=== PATIENT | female | born 1935 | race Caucasian/White ===

== ENCOUNTER → 2018-05-09 | Outpatient (CLI) | payer OTHER, MEDICARE ==
[2014-08-21 14:21] VITALS: BP 132/70
[~2018-05-09] MED LIST: ASCO10002 PO; ASPI-482 PO; CELE200C PO; CHOL500016 PO; DABI150C PO; ENOX40DI SQ; FERR325T14 PO; FERR325T58 PO; FURO20TA3 PO; FURO40TA4 PO; GABA300C18 PO; GLUC1CAP41 PO; HYDR-3164 PO; IOHEXOL 240 MG/ML 50ML VIAL. PO ONE; IOHEXOL 300 MG/ML 100ML VIAL. IV ONE; LACT1CAP2 PO; LEVO88TA4 PO; LOSA1TAB22 PO; MAGN400C PO; METO-247 PO; METO100T7 PO; MULT-208 PO; MULT-245 PO; MULT-658 PO; NABU750T PO; NYST100054 PO; OMEG1CAP30 PO; OMEP40CA5 PO; OXYB5TAB7 PO; OXYC1TAB22 PO; POTA10TA12 PO; PRAM0.25 PO; TRAM50TA PO; VITA1TAB19 PO; VITA80003 PO; ZOLP5TAB PO; calcium PO
--- NOTE | 2018-05-09 11:41 | KCIC ---
PQRS Compliance statement: One or more of the following individualized dose reduction techniques were utilized for this examination: 1. Automated exposure control. 2. Adjustment of the mA and/or kV according to patient size. 3. Use of iterative reconstruction technique. Indication:Lower abdominal/pelvis pain bilaterally, diverticulosis, diarrhea TECHNIQUE: CT abdomen and pelvis with IV contrast with multiplanar reformats. COMPARISON: 11/09/2014 FINDINGS: Heart is normal in size. No pericardial or pleural effusion. Minimal interval increase in the size of left lung base nodule measuring 1.7 cm, previously 1.5 cm. Liver, spleen, pancreas, adrenals within normal limits. Simple cyst is seen in the left kidney measuring 4.7 cm. No nephrolithiasis or hydronephrosis. No free pelvic fluid or ascites. Sigmoid diverticulosis. No bowel obstruction. Status post partial proximal colectomy. Uterus is present. Urinary bladder shows no radiopaque stones. No pneumoperitoneum. Mild diffuse atherosclerotic disease of the abdominal aorta. No suspicious bony lesion. Multilevel advanced degenerative disc disease in the lumbar spine. IMPRESSION: 1. Slight interval increase in size of left lower lobe nodular opacity when compared to previous exam from 11/09/2014. Extremity slow growth suggests benign etiology. Follow-up CT chest in 6-12 months recommended. 2. Mild sigmoid diverticulosis without diverticulitis. Electronically signed by: Joe Ansari DO (05/09/2018 11:38 AM) [id number]
== END | disposition home or self-care (01) ==
LOC: KCIC CT 09:36
PROVIDERS: ATTEND Nurse Practitioner Family
DX: K57.30 Diverticulosis of large intestine without perforation or abscess without bleeding (principal); I70.0 Atherosclerosis of aorta; M51.36 Other intervertebral disc degeneration, lumbar region; N28.1 Cyst of kidney, acquired; R91.1 Solitary pulmonary nodule; I10 Essential (primary) hypertension; Z79.01 Long term (current) use of anticoagulants; Z68.43 Body mass index [BMI] 50.0-59.9, adult; Z87.19 Personal history of other diseases of the digestive system; Z90.49 Acquired absence of other specified parts of digestive tract
CPT/HCPCS: 74177; 82565; Q9966; Q9967

== ENCOUNTER 2019-08-07 12:22 | Emergency (ER) | payer OTHER, MEDICARE ==
[~2019-08-07] VITALS: Ht 157.5 cm; Wt 120.0 kg
[~2019-08-07 12:22] MED LIST changes: -IOHEXOL 240 MG/ML 50ML VIAL. PO ONE; -IOHEXOL 300 MG/ML 100ML VIAL. IV ONE; +OMEP40CA45 PO; -OMEP40CA5 PO; +OXYB5TAB10 PO; -OXYB5TAB7 PO; -POTA10TA12 PO; +POTASSIUM CHLO10 ME1 PO
--- NOTE | 2019-08-07 13:09 | PHYS DOC ---
Past Medical History Past Medical History: A-Fib, Hypertension, Other Past Surgical History: Other Additional Past Surgical Histo: PARTIAL THYROIDECTOMY, HERNIA REPAIR, PARTIAL C OLON RESECTION Smoking Status: Never Smoker Alcohol Use: None Drug Use: None General Adult EDM: Chief Complaint: SHORTNESS OF BREATH HPI: HPI: Patient is a 84 year old female with history of A. fib, hypertension, who presents to the ED today complaining of shortness of breath that is chronic in nature but got worse in the last couple days. Patient denies any coughing, fever. Denies any chest pain. PCP Dr. Braden Hughes [employer] Dr. Castellon Review of Systems: Review of Systems: Constitutional: Denies fever or chills. [] Eyes: Denies change in visual acuity. [] HENT: Denies nasal congestion or sore throat. [] Respiratory: Reports shortness of breath. Denies cough Cardiovascular: Denies chest pain or edema. [] GI: Denies abdominal pain, nausea, vomiting, bloody stools or diarrhea. [] : Denies dysuria. [] Musculoskeletal: Denies back pain or joint pain. [] Integument: Denies rash. [] Neurologic: Denies headache, focal weakness or sensory changes. [] Psychiatric: Denies depression or anxiety. [] Heart Score: Risk Factors: Risk Factors: DM, Current or recent (<one month) smoker, HTN, HLP, family history of CAD, obesity. Risk Scores: Score 0 - 3: 2.5% MACE over next 6 weeks - Discharge Home Score 4 - 6: 20.3% MACE over next 6 weeks - Admit for Clinical Observation Score 7 - 10: 72.7% MACE over next 6 weeks - Early Invasive Strategies Allergies: Allergies: Allergies Coded Allergies Type Severity Reaction Last Updated Verified No Known Drug Allergies 06/30/14 No Physical Exam: PE: Constitutional: Obese patient, no acute distress, non-toxic appearance. [] HENT: Normocephalic, atraumatic, bilateral external ears normal, oropharynx moist, no oral exudates, nose normal. [] Eyes: PERRLA, EOMI, conjunctiva normal, no discharge. [] Neck: Normal range of motion, no tenderness, supple, no stridor. [] Cardiovascular:Heart rate regular rhythm, no murmur [] Lungs & Thorax: Bilateral breath sounds clear to auscultation [] Abdomen: Bowel sounds normal, soft, no tenderness, no masses, no pulsatile masses. [] Skin: Warm, dry, no erythema, no rash. [] Back: No tenderness, no CVA tenderness. [] Extremities: No tenderness, no cyanosis, no clubbing, ROM intact, no edema. [] Neurologic: Alert and oriented X 3, normal motor function, normal sensory function, no focal deficits noted. [] Psychologic: Affect normal, judgement normal, mood normal. [] EKG: EKG: [] Radiology/Procedures: Radiology/Procedures: []PROCEDURE: PORTABLE CHEST 1V EXAM: PORTABLE CHEST 1V 08/07/2019 1:05 PM CLINICAL INDICATION:Shortness of breath COMPARISON:None TECHNIQUE:AP upright view of the chest FINDINGS:Mild cardiomegaly is unchanged. There is calcified atherosclerosis in the thoracic aorta. Lungs are adequately expanded. No pulmonary edema, consolidation, pleural effusion or pneumothorax. Mild thoracic scoliosis. IMPRESSION: Unchanged mild cardiomegaly. No acute abnormality. Electronically signed by: Macy Kirkland MD (08/07/2019 1:50 PM) [id number] DICTATED and SIGNED BY: MACY KIRKLAND MD DATE: 08/07/19 1356 Course & Med Decision Making: Course & Med Decision Making Pertinent Labs and Imaging studies reviewed. (See chart for details) This is a 84-year-old female patient with history of A. fib presenting to the ED today with shortness of breath that is chronic but has gotten worse in the last couple days. Chest x-ray was negative for any acute findings, EKG is negative, most of her labs are negative for any acute findings, BNP noted at 992. Patient reports being on several water pills including furosemide and HCTZ which she did not take this morning. Blood pressure was 184/71 has not take any of her medications this morning. Given furosemide and metoprolol in the ED. She states she is feeling better. She was discharged to home. Follow-up with PCP and drop count associate tomorrow. RX for cephalaxin sent to her pharmacy for UTI Josue Disclaimer: Josue Disclaimer: This electronic medical record was generated, in whole or in part, using a voice recognition dictation system. Departure Departure Impression: Primary Impression: Shortness of breath Additional Impression: CHF (congestive heart failure) Qualified Codes: I50.9 - Heart failure, unspecified Disposition: 01 HOME, SELF-CARE Condition: STABLE Referrals: MICHAEL TOUSSAINT (PCP) Follow-up in 1 to 2 weeks Patient Instructions: Shortness of Breath Additional Instructions: You were evaluated in the emergency room for shortness of breath. Please continue taking your medications and follow-up with your primary care doctor as well as drop count associate in the course of next week. Scripts Cephalexin (CEPHALEXIN) 500 Mg Tablet 1 TAB PO BID, #14 TAB Prov: DEACON GOODWIN APRN 08/07/19 DEACON GOODWIN APRN August 07, 2019 13:09
[2019-08-07 13:20] LABS: BASO # 0.1 x10^3/uL (0.0-0.2); BASO % 1 % (0-3); EOS # 0.1 x10^3/uL (0.0-0.7); EOS % 2 % (0-3); HEMATOCRIT 43.2 % (36.0-47.0); HEMOGLOBIN 14.5 g/dL (12.0-15.5); LYMPH # 0.9 x10^3/uL (1.0-4.8); LYMPH % 15 % (24-48); MEAN CORPUSCULAR HEMOGLOBIN 30 pg (25-35); MEAN CORPUSCULAR HGB CONC 34 g/dL (31-37); MEAN CORPUSCULAR VOLUME 90 fL (79-100); MONO # 0.5 x10^3/uL (0.0-1.1); MONO % 9 % (0-9); NEUT # 4.3 x10^3/uL (1.8-7.7); NEUT % 73 % (31-73); PLATELET COUNT 201 x10^3/uL (140-400); RED BLOOD COUNT 4.79 x10^6/uL (3.50-5.40); RED CELL DISTRIBUTION WIDTH 14.9 % (11.5-14.5); WHITE BLOOD COUNT 5.9 x10^3/uL (4.0-11.0)
[2019-08-07 13:30] LABS: PROTHROMBIN TIME PATIENT 15.5 SEC (11.7-14.0)
[2019-08-07 13:33] LABS: CALCIUM 9.4 mg/dL (8.5-10.1); CREATININE 0.8 mg/dL (0.6-1.0); GFR 68.5; POTASSIUM 3.7 mmol/L (3.5-5.1)
[2019-08-07 13:38] LABS: ALBUMIN 3.5 g/dL (3.4-5.0); ALBUMIN/GLOBULIN RATIO 0.9 (1.0-1.7); MAGNESIUM 2.2 mg/dL (1.8-2.4); TOTAL BILIRUBIN 0.7 mg/dL (0.2-1.0); TOTAL PROTEIN 7.3 g/dL (6.4-8.2)
[2019-08-07 13:48] LABS: CREATINE KINASE 67 U/L (26-192)
--- NOTE | 2019-08-07 13:48 | EKG ---
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
--- NOTE | 2019-08-07 13:53 | RAD ---
EXAM: PORTABLE CHEST 1V 08/07/2019 1:05 PM CLINICAL INDICATION:Shortness of breath COMPARISON:None TECHNIQUE:AP upright view of the chest FINDINGS:Mild cardiomegaly is unchanged. There is calcified atherosclerosis in the thoracic aorta. Lungs are adequately expanded. No pulmonary edema, consolidation, pleural effusion or pneumothorax. Mild thoracic scoliosis. IMPRESSION: Unchanged mild cardiomegaly. No acute abnormality. Electronically signed by: Macy Kirkland MD (08/07/2019 1:50 PM) [id number]
[2019-08-07 14:40] LABS: BILIRUBIN,URINE NEGATIVE (NEG); CLARITY,URINE CLEAR; COLOR,URINE YELLOW; NITRITE,URINE NEGATIVE (NEG); PROTEIN,URINE NEGATIVE (NEG-TRACE); UROBILINOGEN,URINE 0.2 mg/dL (0.2 mg/dL)
[2019-08-07 14:46] LABS: BACTERIA,URINE MANY /HPF (0-FEW); RBC,URINE OCC /HPF (0-2); SQUAMOUS EPITHELIAL CELL,UR FEW /LPF; WBC,URINE 20-40 /HPF (0-4)
[2019-08-07 14:49] LABS: BARBITURATES NEG (NEG); BENZODIAZEPINES NEG (NEG); CANNABINOIDS NEG (NEG); COCAINE NEG (NEG); METHADONE NEG (NEG); OPIATES NEG (NEG); PHENCYCLIDINE NEG (NEG)
[2019-08-07 14:57] LABS: AMPHETAMINE/METHAMPHETAMINE NEG (NEG)
[2019-08-07] MEDS ORDERED: FUROSEMIDE 40 MG TABLET. PO ONE (15:45)
[2019-08-07] MEDS ORDERED: METOPROLOL TART IMMED RELEASE 50 MG TABLET. PO ONE (15:45)
[2019-08-07] MEDS ORDERED: CEPH500T PO (16:00)
[2019-08-07 16:01] VITALS: BP 211/87
== END 2019-08-07 16:45 | disposition home or self-care (01) ==
LOC: ER 12:22
DX: I11.0 Hypertensive heart disease with heart failure (principal); I50.9 Heart failure, unspecified; R06.02 Shortness of breath; I48.91 Unspecified atrial fibrillation
CPT/HCPCS: 36415; 71045; 80053; 80307; 81001; 82553; 83605; 83735; 83880; 84145; 84443; 84484; 85025; 85610; 85730; 87040; 93005; 99285-25

== ENCOUNTER → 2019-09-25 | Outpatient (CLI) | payer OTHER, MEDICARE ==
[~2019-09-25] MED LIST changes: +ASCO100019 PO; -ASCO10002 PO; +CEPH500T PO
--- NOTE | 2019-09-25 15:45 | CARD ---
MR#: [id number] Date of Study: 09/25/2019 Ordering Physician: FREDY ANDERSON, Referring Physician: FREDY ANDERSON, Tech: Maryam Madden [facility] APPROV[facility] REPORT EXAM: Two-dimensional and M-mode echocardiogram with Doppler and color Doppler. Other Information Quality : Good Rhythm : Atrial Fibrillation INDICATION Exertional Dyspnea 2D DIMENSIONS RVDd3.6 (2.9-3.5cm)Left Atrium(2D)4.5 (1.6-4.0cm) IVSd1.3 (0.7-1.1cm)Aortic Root(2D)3.1 (2.0-3.7cm) LVDd5.3 (3.9-5.9cm)LVOT Diameter2.0 (1.8-2.4cm) PWd1.2 (0.7-1.1cm)LVDs3.2 (2.5-4.0cm) FS (%) 38.9 %SV93.9 ml LVEF(%)60.0 (>50%) Aortic Valve AoV Peak Javier.158.9cm/sAoV VTI34.1cm AO Peak GR.10.1mmHgLVOT Peak Javier.111.2cm/s AO Mean GR.5mmHgAVA (VMAX)2.20cm2 ARYA (VTI)2.20cm2 Tricuspid Valve TR P. [id number] [id number] TR Peak Gr.10whLyFCIK31hsEe LEFT VENTRICLE The left ventricle is normal size. There is mild concentric left ventricular hypertrophy. The left ve ntricular systolic function is normal and the ejection fraction is within normal range. The Ejection Fraction is 55-60%. There is normal LV segmental wall motion. Tissue Doppler imaging reveals moderate left ventricular diastolic dysfunction. RIGHT VENTRICLE The right ventricle is mildly dilated. The right ventricular systolic function is normal. ATRIA The left atrium is mildly dilated. The right atrium is mildly dilated. The interatrial septum is inta ct with no evidence for an atrial septal defect or patent foramen ovale as noted on 2-D or Doppler im aging. AORTIC VALVE The aortic valve is calcified but opens well. Doppler and Color Flow revealed no significant aortic r egurgitation. There is no significant aortic valvular stenosis. MITRAL VALVE The mitral valve is calcified but opens well. There is no evidence of mitral valve prolapse. There is no mitral valve stenosis. Doppler and Color-flow revealed trace mitral regurgitation. TRICUSPID VALVE The tricuspid valve is normal in structure and function. Doppler and Color Flow revealed mild tricusp id regurgitation. There is moderate pulmonary hypertension. The PA pressure was estimated at 52 mmHg. There is no tricuspid valve stenosis. PULMONIC VALVE Doppler and Color Flow revealed trace to mild pulmonic valvular regurgitation. There is no pulmonic v alvular stenosis. GREAT VESSELS The aortic root is normal in size. The ascending aorta is mildly dilated at 3.5 cm. The IVC is normal in size and collapses >50% with inspiration. PERICARDIAL EFFUSION There is no evidence of significant pericardial effusion. Critical Notification Critical Value: No <Conclusion> The left ventricular systolic function is normal and the ejection fraction is within normal range. Th e Ejection Fraction is 55-60%. There is normal LV segmental wall motion. Doppler and Color Flow revealed mild tricuspid regurgitation. There is moderate pulmonary hypertensio n. The PA pressure was estimated at 52 mmHg. The ascending aorta is mildly dilated at 3.5 cm. Signed by : Fredy Anderson, Electronically Approved : 09/25/2019 15:45:10
== END | disposition home or self-care (01) ==
LOC: ECHO 08:12
PROVIDERS: ATTEND Internal Medicine Cardiovascular Disease
DX: I08.8 Other rheumatic multiple valve diseases (principal); I27.20 Pulmonary hypertension, unspecified
CPT/HCPCS: 93306

== ENCOUNTER 2021-01-31 12:39 | Inpatient (IN) | payer MEDICARE, OTHER ==
[~2021-01-31] VITALS: Ht 165.1 cm; Wt 120.0 kg
[~2021-01-31 12:39] MED LIST changes: -NABU750T PO; +NABU750T11 PO; -OMEP40CA45 PO; +OMEP40CA7 PO
[2021-01-31] MEDS ORDERED: DEXAMETHASONE SOD PHOS 20 MG/5 ML VIAL. IV ONE (13:00)
[2021-01-31] MEDS ORDERED: ACETAMINOPHEN 500 MG TABLET PO ONE (13:00)
--- NOTE | 2021-01-31 13:11 | PHYS DOC ---
Past Medical History Past Medical History: A-Fib, Hypertension, Other Past Surgical History: Other Additional Past Surgical Histo: PARTIAL THYROIDECTOMY, HERNIA REPAIR, PARTIAL C OLON RESECTION Smoking Status: Never Smoker Alcohol Use: None Drug Use: None General Adult EDM: Chief Complaint: OTHER COMPLAINTS HPI: HPI: Patient is an 85-year-old female who presents to the emergency department today for shortness of breath, nonproductive cough, fever. Patient is Covid positive and has worsening of her symptoms over the last day. Patient is on day 10 of her quarantine. She does not wear home oxygen. She is hypoxic upon ER arrival at 88 to 89% on room air. Patient has a history of A. fib and hypertension. She denies chest pain, nausea, vomiting. Patient denies any history of CHF or COPD. She states that she has bilateral lower extremity edema but this is her baseline edema. Review of Systems: Review of Systems: Constitutional: See HPI Respiratory: See HPI Cardiovascular: See HPI GI: See HPI Heart Score: C/O Chest Pain: No Risk Factors: Risk Factors: DM, Current or recent (<one month) smoker, HTN, HLP, family history of CAD, obesity. Risk Scores: Score 0 - 3: 2.5% MACE over next 6 weeks - Discharge Home Score 4 - 6: 20.3% MACE over next 6 weeks - Admit for Clinical Observation Score 7 - 10: 72.7% MACE over next 6 weeks - Early Invasive Strategies Current Medications: Current Medications Medications (Trade) Dose Ordered Sig/Flora Start Time Stop Time Status Last Admin Dose Admin Acetaminophen (Tylenol) 1,000 mg 1X ONCE 01/31/21 13:00 01/31/21 13:01 DC Dexamethasone Sodium Phosphate (Decadron) 10 mg 1X ONCE 01/31/21 13:00 01/31/21 13:01 DC Allergies: Allergies: Allergies Coded Allergies Type Severity Reaction Last Updated Verified No Known Drug Allergies 06/30/14 No Physical Exam: PE: Constitutional: Well developed, well nourished, no acute distress, non-toxic appearance. [] HENT: Normocephalic, atraumatic, bilateral external ears normal, oropharynx moist, no oral exudates, nose normal. [] Eyes: PERRL, EOMI, conjunctiva normal, no discharge. [] Neck: Normal range of motion, no stridor Cardiovascular:Heart rate regular rhythm, no murmur [] Lungs & Thorax: Bilateral breath sounds clear to auscultation [] Abdomen: Bowel sounds normal, soft, no tenderness, no masses, no pulsatile mas ses. [] Skin: Warm, dry, no erythema, no rash. [] Back: Normal range of motion Extremities: No tenderness, no cyanosis, no clubbing, ROM intact, 2+ pitting edema noted bilaterally with darkened discoloration of bilateral lower extremities Neurologic: Alert and oriented X 3, normal motor function, normal sensory function, no focal deficits noted. [] Psychologic: Affect normal, judgement normal, mood normal. [] Current Patient Data: Labs: Laboratory Tests Test 01/31/21 13:28 White Blood Count 4.3 x10^3/uL Red Blood Count 4.84 x10^6/uL Hemoglobin 14.3 g/dL Hematocrit 42.1 % Mean Corpuscular Volume 87 fL Mean Corpuscular Hemoglobin 30 pg Mean Corpuscular Hemoglobin Concent 34 g/dL Red Cell Distribution Width 14.2 % Platelet Count 185 x10^3/uL Neutrophils (%) (Auto) 77 % Lymphocytes (%) (Auto) 11 % Monocytes (%) (Auto) 11 % Eosinophils (%) (Auto) 0 % Basophils (%) (Auto) 1 % Neutrophils # (Auto) 3.3 x10^3/uL Lymphocytes # (Auto) 0.5 x10^3/uL Monocytes # (Auto) 0.5 x10^3/uL Eosinophils # (Auto) 0.0 x10^3/uL Basophils # (Auto) 0.0 x10^3/uL Sodium Level 133 mmol/L Potassium Level 4.0 mmol/L Chloride Level 94 mmol/L Carbon Dioxide Level 29 mmol/L Anion Gap 10 Blood Urea Nitrogen 13 mg/dL Creatinine 0.8 mg/dL Estimated GFR (Cockcroft-Gault) 68.3 BUN/Creatinine Ratio 16 Glucose Level 105 mg/dL Calcium Level 8.6 mg/dL Total Bilirubin 1.0 mg/dL Aspartate Amino Transf (AST/SGOT) 93 U/L Alanine Aminotransferase (ALT/SGPT) 73 U/L Alkaline Phosphatase 86 U/L Troponin I High Sensitivity 16 ng/L QZ-Hru-Y-Type Natriuretic Peptide 1032 pg/mL Total Protein 6.3 g/dL Albumin 3.0 g/dL Albumin/Globulin Ratio 0.9 Current Medications Medications (Trade) Dose Ordered Sig/Flora Route PRN Reason Start Time Stop Time Status Last Admin Dose Admin Dexamethasone Sodium Phosphate (Decadron) 10 mg 1X ONCE IV 01/31/21 13:00 01/31/21 13:01 DC 01/31/21 14:01 Acetaminophen (Tylenol) 1,000 mg 1X ONCE PO 01/31/21 13:00 01/31/21 13:01 DC 01/31/21 13:17 Ceftriaxone Sodium (Rocephin) 1 gm 1X ONCE IVP 01/31/21 14:45 01/31/21 14:46 DC Azithromycin 250 ml @ 250 mls/hr 1X ONCE IV 01/31/21 14:45 01/31/21 15:44 Vital Signs: Vital Signs Date Time Temp Pulse Resp B/P (MAP) Pulse Ox O2 Delivery O2 Flow Rate FiO2 01/31/21 12:57 100.8 90 20 155/69 (97) 89 Room Air 100.8 EKG: EKG: EKG performed by ER staff at 1254 shows A. fib, no STEMI read by Dr. Rosado at 1257 [] Radiology/Procedures: Radiology/Procedures: PATIENT: MATILDE BERMUDEZ ACCOUNT: [id number] : 1935 LOCATION: ER AGE: 85 SEX: F EXAM STATUS: PRE ER ORD. PHYSICIAN: JAJA TUCKER APRN REASON: soa PROCEDURE: PORTABLE CHEST 1V EXAM: Chest, single view. HISTORY: Shortness of air. COMPARISON: 08/07/2019 FINDINGS: A frontal view of the chest is obtained. There is diffuse interstitial infiltrate. There are trace pleural effusions. There is cardiomegaly. There is no pneumothorax. IMPRESSION: Diffuse interstitial infiltrate with trace pleural effusions and cardiomegaly. Electronically signed by: Cee Barone MD (01/31/2021 1:15 PM) [id number] DICTATED and SIGNED BY: CEE BARONE MD DATE: 01/31/21 [id number] Course & Med Decision Making: Course & Med Decision Making Pertinent Labs and Imaging studies reviewed. (See chart for details) [] Patient presents to the emergency department for shortness of breath, fever, nonproductive cough. Patient is Covid positive. Patient is requiring oxygen at this time as she is 88 to 89% on room air. Work-up in the ER consisted of blood work, EKG, chest x-ray, patient treated with 10mg decadron for hypoxia in Covid-19 infection. Patient CBC was unremarkable. She had elevation of her BNP at 1032, mild elevation in her AST and ALT consistent with a COVID-19 infection, troponin was 16. Patient's chest x-ray showed diffuse interstitial infiltrate with trace pleural effusions. Patient is still requiring oxygen at this time. Patient will be admitted for Covid pneumonia and hypoxia. Discussed patient's findings with her and she is agreeable to care plan. I discussed patient's findings with Dr. Ann who agreed to admit the patient under his services for Covid pneumonia and hypoxia. IV antibiotics ordered for patient in ER bridge orders placed Dragon Disclaimer: Dragon Disclaimer: This electronic medical record was generated, in whole or in part, using a voice recognition dictation system. Departure Departure Impression: Primary Impression: Pneumonia due to COVID-19 virus Additional Impression: Hypoxia Disposition: ADMITTED INPATIENT Admitting Physician: SHAY Condition: STABLE Referrals: JENNIFER CM MD (PCP) JAJA TUCKER VENEER SANDER Jan 31, 2021 13:11
--- NOTE | 2021-01-31 13:18 | RAD ---
EXAM: Chest, single view. HISTORY: Shortness of air. COMPARISON: 08/07/2019 FINDINGS: A frontal view of the chest is obtained. There is diffuse interstitial infiltrate. There ar e trace pleural effusions. There is cardiomegaly. There is no pneumothorax. IMPRESSION: Diffuse interstitial infiltrate with trace pleural effusions and cardiomegaly. Electronically signed by: Cee Kelly MD (01/31/2021 1:15 PM) [id number]
[2021-01-31 13:41] LABS: BASO % 1 % (0-3); EOS % 0 % (0-3); HEMATOCRIT 42.1 % (36.0-47.0); HEMOGLOBIN 14.3 g/dL (12.0-15.5); LYMPH # 0.5 x10^3/uL (1.0-4.8); LYMPH % 11 % (24-48); MEAN CORPUSCULAR HEMOGLOBIN 30 pg (25-35); MEAN CORPUSCULAR HGB CONC 34 g/dL (31-37); MEAN CORPUSCULAR VOLUME 87 fL (79-100); MONO # 0.5 x10^3/uL (0.0-1.1); MONO % 11 % (0-9); NEUT # 3.3 x10^3/uL (1.8-7.7); NEUT % 77 % (31-73); PLATELET COUNT 185 x10^3/uL (140-400); RED BLOOD COUNT 4.84 x10^6/uL (3.50-5.40); RED CELL DISTRIBUTION WIDTH 14.2 % (11.5-14.5); WHITE BLOOD COUNT 4.3 x10^3/uL (4.0-11.0)
[2021-01-31 13:48] LABS: CALCIUM 8.6 mg/dL (8.5-10.1); CREATININE 0.8 mg/dL (0.6-1.0); GFR 68.3
[2021-01-31 13:54] LABS: ALBUMIN/GLOBULIN RATIO 0.9 (1.0-1.7); TOTAL PROTEIN 6.3 g/dL (6.4-8.2)
--- NOTE | 2021-01-31 14:15 | EKG ---
[facility] [address] [place] [address] Test Date: 2021-01-31 Test Time: 12:54:21 Pat Name: MATILDE BERMUDEZ Department: Room: Gender: F Secondary Market Manager: : 1935 Requested By: JAJA TUCKER Order Number: [id number] Reading MD: Rangel Wolf Measurements Intervals [place] Rate: 96 P: [place]: QRS: 55 QRSD: 112 T: -8 QT: 352 QTc: 446 Interpretive Statements ATRIAL FIBRILLATION T ABNORMALITY IN ANTERIOR LEADS ABNORMAL ECG Electronically Signed On 02-01-2021 14:24:18 STERILIZER OPERATOR by Rangel Wolf
[2021-01-31] MEDS ORDERED: AZITHRMYCN 500MG IVPB FOR OMNI 250 ML IV ONE (14:45)
[2021-01-31] MEDS ORDERED: cefTRIAXone IV Push 1 GM VIAL. IVP ONE (14:45)
[2021-01-31] MEDS ORDERED: oxyCODONE/APAP 5/325 1 TAB TABLET PO PRN (16:00)
[2021-01-31] MEDS ORDERED: oxyCODONE IR 5 MG TABLET PO PRN (16:00)
[2021-01-31] MEDS ORDERED: CALCIUM CARBONATE 500 MG TAB.CHEW PO PRN (16:00)
[2021-01-31] MEDS ORDERED: ACETAMINOPHEN 325 MG TABLET. PO PRN (16:00)
[2021-01-31] MEDS ORDERED: ONDANSETRON PF 4 MG/2 ML VIAL. IVP PRN (16:00)
[2021-01-31] MEDS ORDERED: ELECTROLYTE (NON-ICU) PROTOCOL. MC PRN (16:00)
--- NOTE | 2021-01-31 16:01 | PDOC1 ---
History and Physical Date of Service: DOS: DATE: 01/31/21 TIME: 16:01 Chief Complaint: Problems: (1) Pneumonia due to COVID-19 virus (2) Hypoxia Chief Complain: Shortness of breath History of Present Illness: HPI: Patient is a pretty poor historian thus HPI from emergency room below Patient is an 85-year-old female who presents to the emergency department today for shortness of breath, nonproductive cough, fever. Patient is Covid positive from what she thinks is 1 week ago and has worsening of her symptoms over the last day. Patient is on day 10 of her quarantine? She does not wear home oxygen. She was hypoxic upon ER arrival at 88 to 89% on room air. Patient has a history of A. fib and hypertension. She denies chest pain, nausea, vomiting. Patient denies any history of CHF or COPD. She states that she has bilateral lower extremity edema but this is her baseline edema. When I evaluated the patient in the emergency room she was still requiring supplemental oxygen. She had received broad-spectrum antibiotics and Decadron. Respirations were still pretty labored. Imaging consistent with ongoing Covid pneumonia. Past Medical/Surgical History: PMH/PSH: A. fib, hypertension Allergies: Allergies: Coded Allergies: No Known Drug Allergies (Unverified , 06/30/14) Family History: Family History: Reviewed with patient she reports hypertension Social History: Social History: Patient denies alcohol tobacco drug use Current Medications: Current Medications Current Medications Dexamethasone Sodium Phosphate (Decadron) 10 mg 1X ONCE IV Last administered on 01/31/21at 14:01; Start 01/31/21 at 13:00; Stop 01/31/21 at 13:01; Status DC Acetaminophen (Tylenol) 1,000 mg 1X ONCE PO Last administered on 01/31/21at 13:17; Start 01/31/21 at 13:00; Stop 01/31/21 at 13:01; Status DC Ceftriaxone Sodium (Rocephin) 1 gm 1X ONCE IVP ; Start 01/31/21 at 14:45; Stop 01/31/21 at 14:46; Status DC Azithromycin 250 ml @ 250 mls/hr 1X ONCE IV ; Start 01/31/21 at 14:45; Stop 01/31/21 at 15:44; Status DC Ceftriaxone Sodium (Rocephin) 1 gm Q24H IVP ; Start 02/01/21 at 16:00 Azithromycin (Zithromax) 250 mg DAILY PO ; Start 02/01/21 at 09:00 Dexamethasone (Decadron) 6 mg DAILY PO ; Start 02/01/21 at 09:00 Multivitamins (Thera M Plus) 1 tab DAILY PO ; Start 02/01/21 at 09:00 Guaifenesin/ Codeine Phosphate (Robitussin Ac) 5 ml PRN Q6HRS PRN PO COUGH; Start 01/31/21 at 16:00 Ascorbic Acid (Vitamin C) 1,000 mg DAILY PO ; Start 02/01/21 at 09:00; Status UNV Aspirin (Ecotrin) 81 mg DAILY PO ; Start 02/01/21 at 09:00; Status UNV Dabigatran (Pradaxa) 75 mg BID PO ; Start 01/31/21 at 21:00; Status UNV Furosemide (Lasix) 40 mg BID PO ; Start 01/31/21 at 21:00; Status UNV Gabapentin (Neurontin) 300 mg HS PO ; Start 01/31/21 at 21:00; Status UNV Levothyroxine Sodium (Synthroid) 88 mcg DAILY PO ; Start 02/01/21 at 09:00; Status UNV Oxybutynin Chloride (Ditropan) 5 mg HS PO ; Start 01/31/21 at 21:00; Status UNV Pramipexole Dihydrochloride (miraPEX) 0.25 mg HS PO ; Start 01/31/21 at 21:00; Status UNV Vitamin B Complex ([place] B) 1 tab DAILY PO ; Start 02/01/21 at 09:00; Status UNV Zolpidem Tartrate (Ambien) 5 mg QHS PO ; Start 01/31/21 at 21:00; Status UNV Non-Formulary Medication (Cholecalciferol (Vitamin D3) (Vitamin D3)) 10,000 unit DAILY PO ; Start 02/01/21 at 09:00; Status UNV Non-Formulary Medication (Losartan/ Hydrochlorothiazide (Losartan-Hctz 100-25 Mg Tab)) 1 each DAILY PO ; Start 02/01/21 at 09:00; Status UNV Non-Formulary Medication (Magnesium Oxide (Magnesium)) 400 mg DAILY PO ; Start 02/01/21 at 09:00; Status UNV Non-Formulary Medication (Metoprolol Tartrate ) 100 mg BID PO ; Start 01/31/21 at 21:00; Status UNV Non-Formulary Medication (Omeprazole ) 40 mg DAILY PO ; Start 02/01/21 at 09:00; Status UNV Active Scripts Active Cephalexin 500 Mg Tablet 1 Tab PO BID Reported Furosemide 40 Mg Tablet 40 Mg PO BID Pradaxa (Dabigatran Etexilate Mesylate) 150 Mg Capsule 75 Mg PO BID Ambien (Zolpidem Tartrate) 5 Mg Tablet 1 Tab PO QHS Percocet 10-325 Mg Tablet (Oxycodone/Acetaminophen) 1 Each Tablet 1-2 Tab PO PRN Q4-6HRS PRN Iron Supplement (Ferrous Sulfate) 325 Mg Tablet 1 Tab PO BID Vitamin D3 (Cholecalciferol (Vitamin D3)) 5,000 Unit Tablet 10,000 Unit PO DAILY Gabapentin (Gabapentin) 300 Mg Capsule 300 Mg PO HS Vitamin A 8,000 Unit Capsule 16,000 Unit PO DAILY [calcium] 1,200 Mg PO DAILY Vitamin C (Ascorbic Acid) 1,000 Mg Tablet 1,000 Mg PO DAILY Glucosamine & Chondroitin Cap (Glucosa Cooney 2KCL/Chondroitin Cooney) 1 Each Capsule 2 Each PO DAILY Magnesium (Magnesium Oxide) 400 Mg Capsule 400 Mg PO DAILY Centrum Silver Tablet (Multivits-Min/Fa/Lycopene/Lut) 1 Each Tablet 1 Each PO DAILY Aspir 81 (Aspirin) 81 Mg Tablet. 81 Mg PO DAILY Metoprolol Tartrate 100 Mg Tablet 100 Mg PO BID B Complex (Vitamin B Complex) 1 Each Tablet 1 Each PO DAILY Acidophilus (Lactobacillus Acidophilus) 1 Each Capsule 1 Each PO DAILY Pramipexole Dihydrochloride (Pramipexole Di-Hcl) 0.25 Mg Tablet 0.25 Mg PO HS Oxybutynin Chloride 5 Mg Tablet 5 Mg PO HS Potassium Chloride 10 Meq Tablet.er 20 Meq PO DAILY Losartan-Hctz 100-25 Mg Tab (Losartan/Hydrochlorothiazide) 1 Each Tablet 1 Each PO DAILY Omeprazole 40 Mg Capsule.dr 40 Mg PO DAILY Levothyroxine Sodium 88 Mcg Tablet 88 Mcg PO DAILY ROS: Review of Systems Review of System Unless noted in HPI 14 point review of systems was negative Physical Exam: Vital Signs: Vital Signs Date Time Temp Pulse Resp B/P (MAP) Pulse Ox O2 Delivery O2 Flow Rate FiO2 11/15/21 12:57 100.8 90 20 155/69 (97) 89 Room Air 100.8 Physcial Exam: GEN: Mild distress due to labored respirations. Alert and oriented HEENT: Normal cephalic, atraumatic, external auditory canals are patent EYES: Extraocular muscles are intact, pupil are equally round and reactive to light and accommodation MUSCULOSKELETAL: Well developed , well nourished, good range of motion ENDOCRINE: No thyromegaly was palpated LYMPHATICS: No cervical chain or axillary nodes were noted HEMATOPOIETIC: No bruising NECK: Supple, no JVD, no thyromegaly was noted LUNGS: Clear to auscultation in all lung christopher without rhonchi or wheezing HEART: Irregular rate and rhythm d ABDOMEN: Soft, nontender. Positive bowel sounds, no organomegaly, normal bowel sounds EXTREMITIES: Bilateral lower extremity edema. Patient reports baseline NEUROLOGIC: Normal speech and tone. A&O x 3, moves all extremities, no obvious focal deficits PSYCHIATRIC: Normal affect, normal mood. Stable SKIN: No ulcerations or rashes, good skin turgor, no jaundice VASCULAR: Good capillary refill, neurovascular bundle appears to be intact Labs: Labs: Laboratory Tests Test 01/31/21 13:28 White Blood Count 4.3 x10^3/uL (4.0-11.0) Red Blood Count 4.84 x10^6/uL (3.50-5.40) Hemoglobin 14.3 g/dL (12.0-15.5) Hematocrit 42.1 % (36.0-47.0) Mean Corpuscular Volume 87 fL (79-100) Mean Corpuscular Hemoglobin 30 pg (25-35) Mean Corpuscular Hemoglobin Concent 34 g/dL (31-37) Red Cell Distribution Width 14.2 % (11.5-14.5) Platelet Count 185 x10^3/uL (140-400) Neutrophils (%) (Auto) 77 % (31-73) Lymphocytes (%) (Auto) 11 % (24-48) Monocytes (%) (Auto) 11 % (0-9) Eosinophils (%) (Auto) 0 % (0-3) Basophils (%) (Auto) 1 % (0-3) Neutrophils # (Auto) 3.3 x10^3/uL (1.8-7.7) Lymphocytes # (Auto) 0.5 x10^3/uL (1.0-4.8) Monocytes # (Auto) 0.5 x10^3/uL (0.0-1.1) Eosinophils # (Auto) 0.0 x10^3/uL (0.0-0.7) Basophils # (Auto) 0.0 x10^3/uL (0.0-0.2) Sodium Level 133 mmol/L (136-145) Potassium Level 4.0 mmol/L (3.5-5.1) Chloride Level 94 mmol/L (98-107) Carbon Dioxide Level 29 mmol/L (21-32) Anion Gap 10 (6-14) Blood Urea Nitrogen 13 mg/dL (7-20) Creatinine 0.8 mg/dL (0.6-1.0) Estimated GFR (Cockcroft-Gault) 68.3 BUN/Creatinine Ratio 16 (6-20) Glucose Level 105 mg/dL (70-99) Calcium Level 8.6 mg/dL (8.5-10.1) Total Bilirubin 1.0 mg/dL (0.2-1.0) Aspartate Amino Transf (AST/SGOT) 93 U/L (15-37) Alanine Aminotransferase (ALT/SGPT) 73 U/L (14-59) Alkaline Phosphatase 86 U/L (46-116) Troponin I High Sensitivity 16 ng/L (4-50) BE-Efi-F-Type Natriuretic Peptide 1032 pg/mL (0-449) Total Protein 6.3 g/dL (6.4-8.2) Albumin 3.0 g/dL (3.4-5.0) Albumin/Globulin Ratio 0.9 (1.0-1.7) Laboratory Tests Test 01/31/21 13:28 White Blood Count 4.3 x10^3/uL (4.0-11.0) Red Blood Count 4.84 x10^6/uL (3.50-5.40) Hemoglobin 14.3 g/dL (12.0-15.5) Hematocrit 42.1 % (36.0-47.0) Mean Corpuscular Volume 87 fL (79-100) Mean Corpuscular Hemoglobin 30 pg (25-35) Mean Corpuscular Hemoglobin Concent 34 g/dL (31-37) Red Cell Distribution Width 14.2 % (11.5-14.5) Platelet Count 185 x10^3/uL (140-400) Neutrophils (%) (Auto) 77 % (31-73) Lymphocytes (%) (Auto) 11 % (24-48) Monocytes (%) (Auto) 11 % (0-9) Eosinophils (%) (Auto) 0 % (0-3) Basophils (%) (Auto) 1 % (0-3) Neutrophils # (Auto) 3.3 x10^3/uL (1.8-7.7) Lymphocytes # (Auto) 0.5 x10^3/uL (1.0-4.8) Monocytes # (Auto) 0.5 x10^3/uL (0.0-1.1) Eosinophils # (Auto) 0.0 x10^3/uL (0.0-0.7) Basophils # (Auto) 0.0 x10^3/uL (0.0-0.2) Sodium Level 133 mmol/L (136-145) Potassium Level 4.0 mmol/L (3.5-5.1) Chloride Level 94 mmol/L (98-107) Carbon Dioxide Level 29 mmol/L (21-32) Anion Gap 10 (6-14) Blood Urea Nitrogen 13 mg/dL (7-20) Creatinine 0.8 mg/dL (0.6-1.0) Estimated GFR (Cockcroft-Gault) 68.3 BUN/Creatinine Ratio 16 (6-20) Glucose Level 105 mg/dL (70-99) Calcium Level 8.6 mg/dL (8.5-10.1) Total Bilirubin 1.0 mg/dL (0.2-1.0) Aspartate Amino Transf (AST/SGOT) 93 U/L (15-37) Alanine Aminotransferase (ALT/SGPT) 73 U/L (14-59) Alkaline Phosphatase 86 U/L (46-116) Troponin I High Sensitivity 16 ng/L (4-50) IJ-Frs-T-Type Natriuretic Peptide 1032 pg/mL (0-449) Total Protein 6.3 g/dL (6.4-8.2) Albumin 3.0 g/dL (3.4-5.0) Albumin/Globulin Ratio 0.9 (1.0-1.7) Assessment/Plan Assessment/Plan Acute hypoxic respiratory failure secondary to pneumonia due to COVID-19, history of A. fib hypertension -Patient with episode with 1 to 2-week history worsening shortness of breath. Says she was Covid positive about a week ago and has been quarantining -Symptoms worsened over the past 24 hours with productive cough and feeling of unable to catch her breath -In emergency room imaging consistent with Covid -Starting broad-spectrum antibiotics. 6 mg Decadron daily. We will hold off on remdesivir as she is pretty far out from her positive status. -As needed breathing treatments -She is on home Pradaxa which will also serve as DVT prophylaxis -Cardiac diet -Wean O2 as tolerated -Home meds resumed as indicated Justifications for Admission Other Justification ROSSY DELVALLE MD Jan 31, 2021 16:01
[2021-01-31 16:52] LABS: INFLUENZA A PATIENT NEGATIVE (NEGATIVE); INFLUENZA B PATIENT NEGATIVE (NEGATIVE)
--- NOTE | 2021-01-31 18:45 | NUR ---
At 17:45 PM The patient, MATILDE BERUMDEZ, 85 y/o, F admitted by ROSSY DELVALLE MD, was given written information regarding hospital policies, unit procedures and contact persons. Valuables were checked and left with her.
[2021-01-31 19:00] VITALS: BP 130/69
[2021-01-31] MEDS: OXYBUTYNIN CHLORIDE 5 MG TABLET PO SCH (21:00)
[2021-01-31] MEDS: SENNOSIDES/DOCUSATE 8.6/50MG TABLET. PO SCH (21:00)
[2021-01-31] MEDS: DABIGATRAN ETEXILATE 75 MG CAPSULE. PO SCH (21:00)
[2021-01-31] MEDS: ZOLPIDEM 5 MG TABLET. PO SCH (21:00)
[2021-01-31] MEDS: FUROSEMIDE 40 MG TABLET. PO SCH (21:00)
[2021-01-31] MEDS: oxyCODONE/APAP 5/325 1 TAB TABLET PO PRN (21:01)
[2021-01-31] MEDS: GABAPENTIN 300 MG CAPSULE. PO SCH (21:01)
[2021-01-31] MEDS: METOPROLOL TART IMMED RELEASE 50 MG TABLET. PO SCH (21:01)
[2021-01-31] MEDS: PRAMIPEXOLE 0.25 MG TABLET. PO SCH (21:01)
[2021-01-31 23:02] VITALS: BP 116/67
[2021-02-01 03:17] VITALS: BP 142/64
[2021-02-01] MEDS: LEVOTHYROXINE 88 MCG TABLET PO SCH (05:24)
[2021-02-01] MEDS: guaiFENesin/CODEINE 100mg/10mg 5 ML LIQUID PO PRN ×2 (05:41→20:42)
[2021-02-01] MEDS: oxyCODONE/APAP 5/325 1 TAB TABLET PO PRN ×2 (05:41→20:41)
[2021-02-01 07:00] VITALS: BP 154/58
[2021-02-01 08:02] LABS: BASO % 0 % (0-3); EOS % 0 % (0-3); HEMATOCRIT 41.2 % (36.0-47.0); HEMOGLOBIN 13.8 g/dL (12.0-15.5); LYMPH # 0.3 x10^3/uL (1.0-4.8); LYMPH % 14 % (24-48); MEAN CORPUSCULAR HEMOGLOBIN 29 pg (25-35); MEAN CORPUSCULAR HGB CONC 34 g/dL (31-37); MEAN CORPUSCULAR VOLUME 86 fL (79-100); MONO # 0.2 x10^3/uL (0.0-1.1); MONO % 12 % (0-9); NEUT # 1.5 x10^3/uL (1.8-7.7); NEUT % 74 % (31-73); PLATELET COUNT 183 x10^3/uL (140-400); RED BLOOD COUNT 4.78 x10^6/uL (3.50-5.40); RED CELL DISTRIBUTION WIDTH 13.8 % (11.5-14.5)
--- NOTE | 2021-02-01 08:31 | PDOC ---
PULMONARY PROGRESS NOTES DATE: 02/01/21 TIME: 08:31 Vitals Vital Signs Date Time Temp Pulse Resp B/P (MAP) Pulse Ox O2 Delivery O2 Flow Rate FiO2 02/01/21 06:11 18 91 Nasal Cannula 2.5 02/01/21 03:17 97.5 63 142/64 (90) 97.5 Lungs: Clear Labs Laboratory Tests Test 01/31/21 13:28 01/31/21 16:26 02/01/21 07:10 White Blood Count 4.3 x10^3/uL (4.0-11.0) 2.0 x10^3/uL (4.0-11.0) Red Blood Count 4.84 x10^6/uL (3.50-5.40) 4.78 x10^6/uL (3.50-5.40) Hemoglobin 14.3 g/dL (12.0-15.5) 13.8 g/dL (12.0-15.5) Hematocrit 42.1 % (36.0-47.0) 41.2 % (36.0-47.0) Mean Corpuscular Volume 87 fL (79-100) 86 fL (79-100) Mean Corpuscular Hemoglobin 30 pg (25-35) 29 pg (25-35) Mean Corpuscular Hemoglobin Concent 34 g/dL (31-37) 34 g/dL (31-37) Red Cell Distribution Width 14.2 % (11.5-14.5) 13.8 % (11.5-14.5) Platelet Count 185 x10^3/uL (140-400) 183 x10^3/uL (140-400) Neutrophils (%) (Auto) 77 % (31-73) 74 % (31-73) Lymphocytes (%) (Auto) 11 % (24-48) 14 % (24-48) Monocytes (%) (Auto) 11 % (0-9) 12 % (0-9) Eosinophils (%) (Auto) 0 % (0-3) 0 % (0-3) Basophils (%) (Auto) 1 % (0-3) 0 % (0-3) Neutrophils # (Auto) 3.3 x10^3/uL (1.8-7.7) 1.5 x10^3/uL (1.8-7.7) Lymphocytes # (Auto) 0.5 x10^3/uL (1.0-4.8) 0.3 x10^3/uL (1.0-4.8) Monocytes # (Auto) 0.5 x10^3/uL (0.0-1.1) 0.2 x10^3/uL (0.0-1.1) Eosinophils # (Auto) 0.0 x10^3/uL (0.0-0.7) 0.0 x10^3/uL (0.0-0.7) Basophils # (Auto) 0.0 x10^3/uL (0.0-0.2) 0.0 x10^3/uL (0.0-0.2) Sodium Level 133 mmol/L (136-145) Potassium Level 4.0 mmol/L (3.5-5.1) Chloride Level 94 mmol/L (98-107) Carbon Dioxide Level 29 mmol/L (21-32) Anion Gap 10 (6-14) Blood Urea Nitrogen 13 mg/dL (7-20) Creatinine 0.8 mg/dL (0.6-1.0) Estimated GFR (Cockcroft-Gault) 68.3 BUN/Creatinine Ratio 16 (6-20) Glucose Level 105 mg/dL (70-99) Calcium Level 8.6 mg/dL (8.5-10.1) Total Bilirubin 1.0 mg/dL (0.2-1.0) Aspartate Amino Transf (AST/SGOT) 93 U/L (15-37) Alanine Aminotransferase (ALT/SGPT) 73 U/L (14-59) Alkaline Phosphatase 86 U/L (46-116) Troponin I High Sensitivity 16 ng/L (4-50) EY-Bfd-U-Type Natriuretic Peptide 1032 pg/mL (0-449) Total Protein 6.3 g/dL (6.4-8.2) Albumin 3.0 g/dL (3.4-5.0) Albumin/Globulin Ratio 0.9 (1.0-1.7) Influenza Type A Antigen Negative (NEGATIVE) Influenza Type B Antigen Negative (NEGATIVE) Laboratory Tests Test 01/31/21 13:28 01/31/21 16:26 02/01/21 07:10 White Blood Count 4.3 x10^3/uL (4.0-11.0) 2.0 x10^3/uL (4.0-11.0) Red Blood Count 4.84 x10^6/uL (3.50-5.40) 4.78 x10^6/uL (3.50-5.40) Hemoglobin 14.3 g/dL (12.0-15.5) 13.8 g/dL (12.0-15.5) Hematocrit 42.1 % (36.0-47.0) 41.2 % (36.0-47.0) Mean Corpuscular Volume 87 fL (79-100) 86 fL (79-100) Mean Corpuscular Hemoglobin 30 pg (25-35) 29 pg (25-35) Mean Corpuscular Hemoglobin Concent 34 g/dL (31-37) 34 g/dL (31-37) Red Cell Distribution Width 14.2 % (11.5-14.5) 13.8 % (11.5-14.5) Platelet Count 185 x10^3/uL (140-400) 183 x10^3/uL (140-400) Neutrophils (%) (Auto) 77 % (31-73) 74 % (31-73) Lymphocytes (%) (Auto) 11 % (24-48) 14 % (24-48) Monocytes (%) (Auto) 11 % (0-9) 12 % (0-9) Eosinophils (%) (Auto) 0 % (0-3) 0 % (0-3) Basophils (%) (Auto) 1 % (0-3) 0 % (0-3) Neutrophils # (Auto) 3.3 x10^3/uL (1.8-7.7) 1.5 x10^3/uL (1.8-7.7) Lymphocytes # (Auto) 0.5 x10^3/uL (1.0-4.8) 0.3 x10^3/uL (1.0-4.8) Monocytes # (Auto) 0.5 x10^3/uL (0.0-1.1) 0.2 x10^3/uL (0.0-1.1) Eosinophils # (Auto) 0.0 x10^3/uL (0.0-0.7) 0.0 x10^3/uL (0.0-0.7) Basophils # (Auto) 0.0 x10^3/uL (0.0-0.2) 0.0 x10^3/uL (0.0-0.2) Sodium Level 133 mmol/L (136-145) Potassium Level 4.0 mmol/L (3.5-5.1) Chloride Level 94 mmol/L (98-107) Carbon Dioxide Level 29 mmol/L (21-32) Anion Gap 10 (6-14) Blood Urea Nitrogen 13 mg/dL (7-20) Creatinine 0.8 mg/dL (0.6-1.0) Estimated GFR (Cockcroft-Gault) 68.3 BUN/Creatinine Ratio 16 (6-20) Glucose Level 105 mg/dL (70-99) Calcium Level 8.6 mg/dL (8.5-10.1) Total Bilirubin 1.0 mg/dL (0.2-1.0) Aspartate Amino Transf (AST/SGOT) 93 U/L (15-37) Alanine Aminotransferase (ALT/SGPT) 73 U/L (14-59) Alkaline Phosphatase 86 U/L (46-116) Troponin I High Sensitivity 16 ng/L (4-50) BB-Kiv-E-Type Natriuretic Peptide 1032 pg/mL (0-449) Total Protein 6.3 g/dL (6.4-8.2) Albumin 3.0 g/dL (3.4-5.0) Albumin/Globulin Ratio 0.9 (1.0-1.7) Influenza Type A Antigen Negative (NEGATIVE) Influenza Type B Antigen Negative (NEGATIVE) Medications Active Scripts Medications Dose Route/Sig Max Daily Dose Days Date Category Cephalexin 500 Mg Tablet 1 Tab PO BID 08/07/19 Rx Furosemide 40 Mg Tablet 40 Mg PO BID 08/21/14 Reported Pradaxa (Dabigatran Etexilate Mesylate) 150 Mg Capsule 75 Mg PO BID 08/20/14 Reported Ambien (Zolpidem Tartrate) 5 Mg Tablet 1 Tab PO QHS 08/20/14 Reported Percocet 10-325 Mg Tablet (Oxycodone/Acetaminophen) 1 Each Tablet 1-2 Tab PO PRN Q4-6HRS PRN 4/17/15 Reported Iron Supplement (Ferrous Sulfate) 325 Mg Tablet 1 Tab PO BID 06/30/14 Reported Vitamin D3 (Cholecalciferol (Vitamin D3)) 5,000 Unit Tablet 10,000 Unit PO DAILY 01/09/14 Reported Gabapentin (Gabapentin) 300 Mg Capsule 300 Mg PO HS 01/09/14 Reported Vitamin A 8,000 Unit Capsule 16,000 Unit PO DAILY 01/09/14 Reported [calcium] 1,200 Mg PO DAILY 01/09/14 Reported Vitamin C (Ascorbic Acid) 1,000 Mg Tablet 1,000 Mg PO DAILY 01/09/14 Reported Glucosamine & Chondroitin Cap (Glucosa Cooney 2KCL/Chondroitin Cooney) 1 Each Capsule 2 Each PO DAILY 01/09/14 Reported Magnesium (Magnesium Oxide) 400 Mg Capsule 400 Mg PO DAILY 01/09/14 Reported Centrum Silver Tablet (Multivits-Min/Fa/Lycopene/Lut) 1 Each Tablet 1 Each PO DAILY 01/09/14 Reported Aspir 81 (Aspirin) 81 Mg Tablet.dr 81 Mg PO DAILY 01/09/14 Reported Metoprolol Tartrate 100 Mg Tablet 100 Mg PO BID 01/09/14 Reported B Complex (Vitamin B Complex) 1 Each Tablet 1 Each PO DAILY 06/19/13 Reported Acidophilus (Lactobacillus Acidophilus) 1 Each Capsule 1 Each PO DAILY 05/16/13 Reported Pramipexole Dihydrochloride (Pramipexole Di-Hcl) 0.25 Mg Tablet 0.25 Mg PO HS 05/16/13 Reported Oxybutynin Chloride 5 Mg Tablet 5 Mg PO HS 05/16/13 Reported Potassium Chloride 10 Meq Tablet.er 20 Meq PO DAILY 05/16/13 Reported Losartan-Hctz 100-25 Mg Tab (Losartan/Hydrochlorothiazide) 1 Each Tablet 1 Each PO DAILY 05/16/13 Reported Omeprazole 40 Mg Capsule.dr 40 Mg PO DAILY 05/16/13 Reported Levothyroxine Sodium 88 Mcg Tablet 88 Mcg PO DAILY 05/16/13 Reported Impression . Full note dictated COVID-19 Hypoxemic respiratory failure Possible concomitant acute on chronic diastolic heart failure DAYAN UNGER MD Feb 01, 2021 08:31
[2021-02-01 08:34] LABS: ALBUMIN 2.6 g/dL (3.4-5.0); ALBUMIN/GLOBULIN RATIO 0.7 (1.0-1.7); CREATININE 0.6 mg/dL (0.6-1.0); GFR 95.2; POTASSIUM 3.7 mmol/L (3.5-5.1); TOTAL BILIRUBIN 0.7 mg/dL (0.2-1.0); TOTAL PROTEIN 6.6 g/dL (6.4-8.2)
[2021-02-01] MEDS: CHOLECALCIFEROL (VITAMIN D3) 5,000 UNIT CAPSULE PO SCH (08:45)
[2021-02-01] MEDS: VITAMIN B COMPLEX TABLET. PO SCH (08:45)
[2021-02-01] MEDS: DABIGATRAN ETEXILATE 75 MG CAPSULE. PO SCH ×2 (08:45→20:40)
[2021-02-01] MEDS: AZITHROMYCIN 250 MG TABLET. PO SCH (08:46)
[2021-02-01] MEDS: METOPROLOL TART IMMED RELEASE 50 MG TABLET. PO SCH ×2 (08:46→20:41)
[2021-02-01] MEDS: ASPIRIN ENTERIC COATED 81 MG TABLET.DR. PO SCH (08:46)
[2021-02-01] MEDS: hydroCHLOROthiazide 25 MG TABLET PO SCH (08:46)
[2021-02-01] MEDS: SENNOSIDES/DOCUSATE 8.6/50MG TABLET. PO SCH ×2 (08:46→20:42)
[2021-02-01] MEDS: PANTOPRAZOLE 40 MG TABLET.DR. PO SCH (08:47)
[2021-02-01] MEDS: ASCORBIC ACID 1,000 MG TABLET PO SCH (08:47)
[2021-02-01] MEDS: LOSARTAN POTASSIUM 50 MG TABLET. PO SCH (08:47)
[2021-02-01] MEDS: MULTIVITAMIN with MINERAL TABLET. PO SCH (08:47)
[2021-02-01] MEDS: MAGNESIUM OXIDE 400 MG TABLET PO SCH (08:47)
[2021-02-01] MEDS: FUROSEMIDE 40 MG TABLET. PO SCH ×2 (08:48→16:25)
[2021-02-01] MEDS: DEXAMETHASONE 4 MG TABLET PO SCH (09:00)
--- NOTE | 2021-02-01 10:29 | PDOC ---
[employer] PROGRESS NOTE Date of Service DOS: DATE: 02/01/21 TIME: 10:26 Chief Complaint Chief Complaint Acute hypoxic respiratory failure secondary to pneumonia due to COVID-19, history of A. fib hypertension -Patient with episode with 1 to 2-week history worsening shortness of breath. Says she was Covid positive about a week ago and has been quarantining -Symptoms worsened over the past 24 hours with productive cough and feeling of unable to catch her breath -In emergency room imaging consistent with Covid -Starting broad-spectrum antibiotics. 6 mg Decadron daily. We will hold off on remdesivir as she is pretty far out from her positive status. -As needed breathing treatments -She is on home Pradaxa which will also serve as DVT prophylaxis -Cardiac diet -Wean O2 as tolerated -Home meds resumed as indicated History of Present Illness History of Present Illness Patient is a pretty poor historian thus HPI from emergency room below Patient is an 85-year-old female who presents to the emergency department today for shortness of breath, nonproductive cough, fever. Patient is Covid positive from what she thinks is 1 week ago and has worsening of her symptoms over the last day. Patient is on day 10 of her quarantine? She does not wear home oxygen. She was hypoxic upon ER arrival at 88 to 89% on room air. Patient has a history of A. fib and hypertension. She denies chest pain, nausea, vomiting. Patient denies any history of CHF or COPD. She states that she has bilateral lower extremity edema but this is her baseline edema. When I evaluated the patient in the emergency room she was still requiring supplemental oxygen. She had received broad-spectrum antibiotics and Decadron. Respirations were still pretty labored. Imaging consistent with ongoing Covid pneumonia. 02/01 Patient evaluated and examined at bedside. She is definitely more alert today able to provide some supplemental history. Says she was initially Covid positive on 23 January. She has been quarantining ever since. She is on 2 L nasal cannula saturating in the 90s. No apparent respiratory distress. Continue COVID treatments. Pulmonary consulted. Plan of care discussed bedside RN. Vitals/I&O Vitals/I&O: Vital Signs Date Time Temp Pulse Resp B/P (MAP) Pulse Ox O2 Delivery O2 Flow Rate FiO2 02/01/21 08:47 63 142/64 02/01/21 08:00 Nasal Cannula 2.5 02/01/21 07:00 96.9 20 91 96.9 I & O 01/31/21 01/31/21 02/01/21 15:00 23:00 07:00 Intake Total 360 ml Balance 360 ml Physical Exam General: Alert, Oriented X3, Cooperative Heart: Regular rate, Normal S1, Normal S2 Lungs: Other (decreased air entry throughout) Abdomen: Normal bowel sounds, Soft, No tenderness Extremities: Normal pulses Skin: No significant lesion Labs Labs: Laboratory Tests Test 01/31/21 13:28 01/31/21 16:26 02/01/21 07:10 02/01/21 08:37 White Blood Count 4.3 x10^3/uL (4.0-11.0) 2.0 x10^3/uL (4.0-11.0) Red Blood Count 4.84 x10^6/uL (3.50-5.40) 4.78 x10^6/uL (3.50-5.40) Hemoglobin 14.3 g/dL (12.0-15.5) 13.8 g/dL (12.0-15.5) Hematocrit 42.1 % (36.0-47.0) 41.2 % (36.0-47.0) Mean Corpuscular Volume 87 fL (79-100) 86 fL (79-100) Mean Corpuscular Hemoglobin 30 pg (25-35) 29 pg (25-35) Mean Corpuscular Hemoglobin Concent 34 g/dL (31-37) 34 g/dL (31-37) Red Cell Distribution Width 14.2 % (11.5-14.5) 13.8 % (11.5-14.5) Platelet Count 185 x10^3/uL (140-400) 183 x10^3/uL (140-400) Neutrophils (%) (Auto) 77 % (31-73) 74 % (31-73) Lymphocytes (%) (Auto) 11 % (24-48) 14 % (24-48) Monocytes (%) (Auto) 11 % (0-9) 12 % (0-9) Eosinophils (%) (Auto) 0 % (0-3) 0 % (0-3) Basophils (%) (Auto) 1 % (0-3) 0 % (0-3) Neutrophils # (Auto) 3.3 x10^3/uL (1.8-7.7) 1.5 x10^3/uL (1.8-7.7) Lymphocytes # (Auto) 0.5 x10^3/uL (1.0-4.8) 0.3 x10^3/uL (1.0-4.8) Monocytes # (Auto) 0.5 x10^3/uL (0.0-1.1) 0.2 x10^3/uL (0.0-1.1) Eosinophils # (Auto) 0.0 x10^3/uL (0.0-0.7) 0.0 x10^3/uL (0.0-0.7) Basophils # (Auto) 0.0 x10^3/uL (0.0-0.2) 0.0 x10^3/uL (0.0-0.2) Sodium Level 133 mmol/L (136-145) 134 mmol/L (136-145) Potassium Level 4.0 mmol/L (3.5-5.1) 3.7 mmol/L (3.5-5.1) Chloride Level 94 mmol/L (98-107) 98 mmol/L (98-107) Carbon Dioxide Level 29 mmol/L (21-32) 26 mmol/L (21-32) Anion Gap 10 (6-14) 10 (6-14) Blood Urea Nitrogen 13 mg/dL (7-20) 17 mg/dL (7-20) Creatinine 0.8 mg/dL (0.6-1.0) 0.6 mg/dL (0.6-1.0) Estimated GFR (Cockcroft-Gault) 68.3 95.2 BUN/Creatinine Ratio 16 (6-20) 28 (6-20) Glucose Level 105 mg/dL (70-99) 135 mg/dL (70-99) Calcium Level 8.6 mg/dL (8.5-10.1) 9.0 mg/dL (8.5-10.1) Total Bilirubin 1.0 mg/dL (0.2-1.0) 0.7 mg/dL (0.2-1.0) Aspartate Amino Transf (AST/SGOT) 93 U/L (15-37) 68 U/L (15-37) Alanine Aminotransferase (ALT/SGPT) 73 U/L (14-59) 60 U/L (14-59) Alkaline Phosphatase 86 U/L (46-116) 74 U/L (46-116) Troponin I High Sensitivity 16 ng/L (4-50) MT-[id number]-Type Natriuretic Peptide 1032 pg/mL (0-449) Total Protein 6.3 g/dL (6.4-8.2) 6.6 g/dL (6.4-8.2) Albumin 3.0 g/dL (3.4-5.0) 2.6 g/dL (3.4-5.0) Albumin/Globulin Ratio 0.9 (1.0-1.7) 0.7 (1.0-1.7) Influenza Type A Antigen Negative (NEGATIVE) Influenza Type B Antigen Negative (NEGATIVE) Glucose (Fingerstick) 132 mg/dL (70-99) Assessment and Plan Assessmemt and Plan Problems Medical Problems: (1) Hypoxia Status: Acute (2) Pneumonia due to COVID-19 virus Status: Acute Comment Review of Relevant I have reviewed the following items peggy (where applicable) has been applied. Medications: Current Medications Medications (Trade) Dose Ordered Sig/Flora Route PRN Reason Start Time Stop Time Status Last Admin Dose Admin Dexamethasone Sodium Phosphate (Decadron) 10 mg 1X ONCE IV 01/31/21 13:00 01/31/21 13:01 DC 01/31/21 14:01 Acetaminophen (Tylenol) 1,000 mg 1X ONCE PO 01/31/21 13:00 01/31/21 13:01 DC 01/31/21 13:17 Ceftriaxone Sodium (Rocephin) 1 gm 1X ONCE IVP 01/31/21 14:45 01/31/21 14:46 DC 01/31/21 16:17 Azithromycin 250 ml @ 250 mls/hr 1X ONCE IV 01/31/21 14:45 01/31/21 15:44 DC 01/31/21 16:16 Azithromycin (Zithromax) 250 mg DAILY PO 02/01/21 09:00 02/01/21 08:46 Multivitamins (Thera M Plus) 1 tab DAILY PO 02/01/21 09:00 02/01/21 08:47 Guaifenesin/ Codeine Phosphate (Robitussin Ac) 5 ml PRN Q6HRS PRN PO COUGH 01/31/21 16:00 02/01/21 05:41 Ascorbic Acid (Vitamin C) 1,000 mg DAILY PO 02/01/21 09:00 02/01/21 08:47 Aspirin (Ecotrin) 81 mg DAILY PO 02/01/21 09:00 02/01/21 08:46 Dabigatran (Pradaxa) 75 mg BID PO 01/31/21 21:00 02/01/21 08:45 Furosemide (Lasix) 40 mg BID94 PO 01/31/21 17:00 02/01/21 08:48 Gabapentin (Neurontin) 300 mg HS PO 01/31/21 21:00 01/31/21 21:01 Levothyroxine Sodium (Synthroid) 88 mcg DAILY07 PO 02/01/21 07:00 02/01/21 05:24 Oxybutynin Chloride (Ditropan) 5 mg HS PO 01/31/21 21:00 01/31/21 21:00 Pramipexole Dihydrochloride (miraPEX) 0.25 mg HS PO 01/31/21 21:00 01/31/21 21:01 Vitamin B Complex (Chico B) 1 tab DAILY PO 02/01/21 09:00 02/01/21 08:45 Zolpidem Tartrate (Ambien) 5 mg QHS PO 01/31/21 21:00 01/31/21 21:00 Vitamin D (Vitamin D3) 10,000 unit DAILY PO 02/01/21 09:00 02/01/21 08:45 Losartan Potassium (Cozaar) 100 mg DAILY PO 02/01/21 09:00 02/01/21 08:47 Magnesium Oxide (Magnesium Oxide) 400 mg DAILY PO 02/01/21 09:00 02/01/21 08:47 Metoprolol Tartrate (Lopressor) 100 mg BID PO 01/31/21 21:00 02/01/21 08:46 Pantoprazole Sodium (Protonix) 40 mg DAILYAC PO 02/01/21 07:30 02/01/21 08:47 Oxycodone/ Acetaminophen (Percocet 5/325) 2 tab PRN Q4HRS PRN PO MODERATE PAIN, SEVERE PAIN 01/31/21 16:00 02/01/21 05:41 Senna/Docusate Sodium (Senna Plus) 1 tab BID PO 01/31/21 21:00 02/01/21 08:46 Hydrochlorothiazide (Hydrodiuril) 25 mg DAILY PO 02/01/21 09:00 02/01/21 08:46 Justifications for Admission Other Justification ROSSY DELVALLE MD Feb 01, 2021 10:29
--- NOTE | 2021-02-01 10:47 | NUR ---
SW following. Discussed with RN, pt from home with daughter, 2.5L (does not use oxygen at home), cardiac diet, COVID-19 positive. RN advised no SW needs at this time. SW will continue to follow.
[2021-02-01 11:00] VITALS: BP 129/57
[2021-02-01 15:29] VITALS: BP 122/63
[2021-02-01] MEDS: cefTRIAXone IV Push 1 GM VIAL. IVP SCH (16:23)
[2021-02-01 19:00] VITALS: BP 116/69
[2021-02-01] MEDS: PRAMIPEXOLE 0.25 MG TABLET. PO SCH (20:40)
[2021-02-01] MEDS: ZOLPIDEM 5 MG TABLET. PO SCH (20:41)
[2021-02-01] MEDS: GABAPENTIN 300 MG CAPSULE. PO SCH (20:42)
[2021-02-01] MEDS: OXYBUTYNIN CHLORIDE 5 MG TABLET PO SCH (20:42)
[2021-02-01] MEDS: LACTOBACILLUS RHAMNOSUS GG 1 CAPSULE. PO SCH (20:42)
[2021-02-01 23:00] VITALS: BP 123/63
--- NOTE | 2021-02-02 00:26 | CONS ---
DATE OF CONSULTATION: 02/01/2021 ATTENDING PHYSICIAN: Ankur Ann MD REASON FOR CONSULTATION: The patient is seen in pulmonary consultation at the request of Dr. Ann for COVID-19 hypoxemia. HISTORY OF PRESENT ILLNESS: The patient is an 85-year-old female that was exposed to family members who tested positive for COVID. She tested positive approximately a week ago. She presented to the Emergency Room with worsening shortness of breath. She ____ after 10 days. She was found to have O2 saturation of 88-89%. The patient is an elderly individual 85-year-old with comorbidities of AFib and hypertension and she was admitted. I was asked to see her in consultation. Her x-ray is compatible with diffuse infiltrates. She also has some trace effusions and cardiomegaly. Her labs revealed a white count that was low. She did have lymphopenia. Electrolytes were noted. The BNP was elevated. The troponin high sensitivity was not elevated. The patient denies any loss of taste. No body aches. No documented fever at home. PAST MEDICAL HISTORY: Obesity, AFib, hypertension. ALLERGIES: No known drug allergies. SOCIAL HISTORY: She has never smoked. FAMILY HISTORY: Everybody in the family is tested positive for COVID-19. She herself is not vaccinated. None in the family members have been vaccinated. CURRENT MEDICATIONS: List was reviewed. She is on Zithromax, Rocephin along with steroids. REVIEW OF SYSTEMS: As indicated above, otherwise other systems were reviewed and negative. PHYSICAL EXAMINATION: VITAL SIGNS: Stable. O2 saturation currently on 2.5 liters was greater than 90%. HEENT: Eyes: The sclerae were nonicteric. NECK: Jugular venous distention was not elevated. No lymphadenopathy. CHEST: Full expansion. LUNGS: Crackles throughout the both lung christopher. CARDIOVASCULAR: Regular rate and rhythm with S1, S2. No S3. ABDOMEN: Soft, obese. EXTREMITIES: No clubbing, cyanosis or edema. LABORATORY DATA: As indicated above. IMPRESSION: 1. Acute hypoxemic respiratory failure secondary to COVID-19. 2. Abnormal x-ray, compatible with COVID-19, possible pulmonary edema. BNP was elevated. Troponin was not elevated. 3. History of hypertension. 4. Atrial fibrillation. 5. Suspect acute on chronic diastolic heart failure. PLAN: 1. Continue current support. 2. Recommend diuresis. 3. Repeat chest x-ray in 24-48 hours. 4. Echocardiogram. AARON DR: Chanel TID: [id number]
[2021-02-02 03:00] VITALS: BP 116/56
[2021-02-02] MEDS: PANTOPRAZOLE 40 MG TABLET.DR. PO SCH (04:58)
[2021-02-02] MEDS: LEVOTHYROXINE 88 MCG TABLET PO SCH (04:58)
[2021-02-02] MEDS: oxyCODONE/APAP 5/325 1 TAB TABLET PO PRN (04:58)
[2021-02-02 07:00] VITALS: BP 121/68
--- NOTE | 2021-02-02 08:59 | PDOC ---
[employer] PROGRESS NOTE Date of Service DOS: DATE: 02/02/21 TIME: 08:58 Chief Complaint Chief Complaint Acute hypoxic respiratory failure secondary to pneumonia due to COVID-19, history of A. fib hypertension -Patient with episode with 1 to 2-week history worsening shortness of breath. Says she was Covid positive about a week ago and has been quarantining -Symptoms worsened over the past 24 hours with productive cough and feeling of unable to catch her breath -In emergency room imaging consistent with Covid -Starting broad-spectrum antibiotics. 6 mg Decadron daily. We will hold off on remdesivir as she is pretty far out from her positive status. -As needed breathing treatments -She is on home Pradaxa which will also serve as DVT prophylaxis -Cardiac diet -Wean O2 as tolerated -Home meds resumed as indicated History of Present Illness History of Present Illness 02/02/2021 Patient seen and examined She is up on the edge of bed coughing Discussed with RN Chart reviewed Patient is a pretty poor historian thus HPI from emergency room below Patient is an 85-year-old female who presents to the emergency department today for shortness of breath, nonproductive cough, fever. Patient is Covid positive from what she thinks is 1 week ago and has worsening of her symptoms over the last day. Patient is on day 10 of her quarantine? She does not wear home oxygen. She was hypoxic upon ER arrival at 88 to 89% on room air. Patient has a history of A. fib and hypertension. She denies chest pain, nausea, vomiting. Patient denies any history of CHF or COPD. She states that she has bilateral lower extremity edema but this is her baseline edema. When I evaluated the patient in the emergency room she was still requiring supplemental oxygen. She had received broad-spectrum antibiotics and Decadron. Respirations were still pretty labored. Imaging consistent with ongoing Covid pneumonia. 02/01 Patient evaluated and examined at bedside. She is definitely more alert today able to provide some supplemental history. Says she was initially Covid positive on 23 January. She has been quarantining ever since. She is on 2 L nasal cannula saturating in the 90s. No apparent respiratory distress. Continue COVID treatments. Pulmonary consulted. Plan of care discussed bedside RN. Vitals/I&O Vitals/I&O: Vital Signs Date Time Temp Pulse Resp B/P (MAP) Pulse Ox O2 Delivery O2 Flow Rate FiO2 02/02/21 05:28 16 88 Nasal Cannula 2.5 02/02/21 03:00 97.5 71 116/56 (76) 97.5 I & O 02/01/21 02/01/21 02/02/21 15:00 23:00 07:00 Intake Total 400 ml 480 ml 360 ml Balance 400 ml 480 ml 360 ml Physical Exam General: Alert, Oriented X3, Cooperative Heart: Regular rate, Normal S1, Normal S2 Lungs: Other (decreased air entry throughout) Abdomen: Normal bowel sounds, Soft, No tenderness Extremities: Normal pulses Skin: No significant lesion Labs Labs: Laboratory Tests Test 02/01/21 11:50 02/01/21 17:28 02/02/21 07:18 Glucose (Fingerstick) 153 mg/dL (70-99) 128 mg/dL (70-99) 94 mg/dL (70-99) Assessment and Plan Assessmemt and Plan Problems Medical Problems: (1) Hypoxia Status: Acute (2) Pneumonia due to COVID-19 virus Status: Acute Acute hypoxic respiratory failure secondary to pneumonia due to COVID-19, history of A. fib hypertension Plan lunchroom monitor Covid protocol Pulmonary following Home meds DVT prophylaxis Full code Comment Review of Relevant I have reviewed the following items peggy (where applicable) has been applied. Medications: Current Medications Medications (Trade) Dose Ordered Sig/Flora Route PRN Reason Start Time Stop Time Status Last Admin Dose Admin Ceftriaxone Sodium (Rocephin) 1 gm Q24H IVP 02/01/21 16:00 02/01/21 16:23 Azithromycin (Zithromax) 250 mg DAILY PO 02/01/21 09:00 02/04/21 09:01 02/01/21 08:46 Multivitamins (Thera M Plus) 1 tab DAILY PO 02/01/21 09:00 02/01/21 08:47 Ascorbic Acid (Vitamin C) 1,000 mg DAILY PO 02/01/21 09:00 02/01/21 08:47 Aspirin (Ecotrin) 81 mg DAILY PO 02/01/21 09:00 02/01/21 08:46 Vitamin B Complex (Chico B) 1 tab DAILY PO 02/01/21 09:00 02/01/21 08:45 Vitamin D (Vitamin D3) 10,000 unit DAILY PO 02/01/21 09:00 02/01/21 08:45 Losartan Potassium (Cozaar) 100 mg DAILY PO 02/01/21 09:00 02/01/21 08:47 Magnesium Oxide (Magnesium Oxide) 400 mg DAILY PO 02/01/21 09:00 02/01/21 08:47 Hydrochlorothiazide (Hydrodiuril) 25 mg DAILY PO 02/01/21 09:00 02/01/21 08:46 Lactobacillus Rhamnosus (Culturelle) 1 cap BID PO 02/01/21 21:00 02/01/21 20:42 Justifications for Admission Other Justification SEN TOMAS III DO Feb 02, 2021 08:59
[2021-02-02] MEDS: METOPROLOL TART IMMED RELEASE 50 MG TABLET. PO SCH ×2 (09:07→21:12)
[2021-02-02] MEDS: LOSARTAN POTASSIUM 50 MG TABLET. PO SCH (09:08)
[2021-02-02] MEDS: MULTIVITAMIN with MINERAL TABLET. PO SCH (09:08)
[2021-02-02] MEDS: hydroCHLOROthiazide 25 MG TABLET PO SCH (09:08)
[2021-02-02] MEDS: MAGNESIUM OXIDE 400 MG TABLET PO SCH (09:08)
[2021-02-02] MEDS: VITAMIN B COMPLEX TABLET. PO SCH (09:08)
[2021-02-02] MEDS: ASPIRIN ENTERIC COATED 81 MG TABLET.DR. PO SCH (09:08)
[2021-02-02] MEDS: CHOLECALCIFEROL (VITAMIN D3) 5,000 UNIT CAPSULE PO SCH (09:08)
[2021-02-02] MEDS: LACTOBACILLUS RHAMNOSUS GG 1 CAPSULE. PO SCH ×2 (09:09→21:12)
[2021-02-02] MEDS: FUROSEMIDE 40 MG TABLET. PO SCH ×2 (09:09→16:16)
[2021-02-02] MEDS: DEXAMETHASONE 4 MG TABLET PO SCH (09:09)
[2021-02-02] MEDS: DABIGATRAN ETEXILATE 75 MG CAPSULE. PO SCH ×2 (09:09→21:12)
[2021-02-02] MEDS: SENNOSIDES/DOCUSATE 8.6/50MG TABLET. PO SCH ×2 (09:09→21:12)
[2021-02-02] MEDS: ASCORBIC ACID 1,000 MG TABLET PO SCH (09:09)
[2021-02-02] MEDS: AZITHROMYCIN 250 MG TABLET. PO SCH (09:09)
--- NOTE | 2021-02-02 09:24 | PDOC ---
PULMONARY PROGRESS NOTES DATE: 02/02/21 TIME: 09:24 Subjective Patient is less short of air, feels better today. Vitals Vital Signs Date Time Temp Pulse Resp B/P (MAP) Pulse Ox O2 Delivery O2 Flow Rate FiO2 02/02/21 09:08 84 121/68 02/02/21 07:00 97.5 93 16 2.5 97.5 02/02/21 05:28 16 ROS: No Nausea, No Chest Pain, No Abdominal Pain, No Increase Cough General: Alert Lungs: Clear, Other (decreased air entry throughout) Cardiovascular: S1, S2 Abdomen: Soft, Non-tender Neuro Exam: Alert Extremities: No Edema Skin: Warm Labs Laboratory Tests Test 01/31/21 13:28 01/31/21 16:26 02/01/21 07:10 02/01/21 08:37 White Blood Count 4.3 x10^3/uL (4.0-11.0) 2.0 x10^3/uL (4.0-11.0) Red Blood Count 4.84 x10^6/uL (3.50-5.40) 4.78 x10^6/uL (3.50-5.40) Hemoglobin 14.3 g/dL (12.0-15.5) 13.8 g/dL (12.0-15.5) Hematocrit 42.1 % (36.0-47.0) 41.2 % (36.0-47.0) Mean Corpuscular Volume 87 fL (79-100) 86 fL (79-100) Mean Corpuscular Hemoglobin 30 pg (25-35) 29 pg (25-35) Mean Corpuscular Hemoglobin Concent 34 g/dL (31-37) 34 g/dL (31-37) Red Cell Distribution Width 14.2 % (11.5-14.5) 13.8 % (11.5-14.5) Platelet Count 185 x10^3/uL (140-400) 183 x10^3/uL (140-400) Neutrophils (%) (Auto) 77 % (31-73) 74 % (31-73) Lymphocytes (%) (Auto) 11 % (24-48) 14 % (24-48) Monocytes (%) (Auto) 11 % (0-9) 12 % (0-9) Eosinophils (%) (Auto) 0 % (0-3) 0 % (0-3) Basophils (%) (Auto) 1 % (0-3) 0 % (0-3) Neutrophils # (Auto) 3.3 x10^3/uL (1.8-7.7) 1.5 x10^3/uL (1.8-7.7) Lymphocytes # (Auto) 0.5 x10^3/uL (1.0-4.8) 0.3 x10^3/uL (1.0-4.8) Monocytes # (Auto) 0.5 x10^3/uL (0.0-1.1) 0.2 x10^3/uL (0.0-1.1) Eosinophils # (Auto) 0.0 x10^3/uL (0.0-0.7) 0.0 x10^3/uL (0.0-0.7) Basophils # (Auto) 0.0 x10^3/uL (0.0-0.2) 0.0 x10^3/uL (0.0-0.2) Sodium Level 133 mmol/L (136-145) 134 mmol/L (136-145) Potassium Level 4.0 mmol/L (3.5-5.1) 3.7 mmol/L (3.5-5.1) Chloride Level 94 mmol/L (98-107) 98 mmol/L (98-107) Carbon Dioxide Level 29 mmol/L (21-32) 26 mmol/L (21-32) Anion Gap 10 (6-14) 10 (6-14) Blood Urea Nitrogen 13 mg/dL (7-20) 17 mg/dL (7-20) Creatinine 0.8 mg/dL (0.6-1.0) 0.6 mg/dL (0.6-1.0) Estimated GFR (Cockcroft-Gault) 68.3 95.2 BUN/Creatinine Ratio 16 (6-20) 28 (6-20) Glucose Level 105 mg/dL (70-99) 135 mg/dL (70-99) Calcium Level 8.6 mg/dL (8.5-10.1) 9.0 mg/dL (8.5-10.1) Total Bilirubin 1.0 mg/dL (0.2-1.0) 0.7 mg/dL (0.2-1.0) Aspartate Amino Transf (AST/SGOT) 93 U/L (15-37) 68 U/L (15-37) Alanine Aminotransferase (ALT/SGPT) 73 U/L (14-59) 60 U/L (14-59) Alkaline Phosphatase 86 U/L (46-116) 74 U/L (46-116) Troponin I High Sensitivity 16 ng/L (4-50) JM-Oug-I-Type Natriuretic Peptide 1032 pg/mL (0-449) Total Protein 6.3 g/dL (6.4-8.2) 6.6 g/dL (6.4-8.2) Albumin 3.0 g/dL (3.4-5.0) 2.6 g/dL (3.4-5.0) Albumin/Globulin Ratio 0.9 (1.0-1.7) 0.7 (1.0-1.7) Influenza Type A Antigen Negative (NEGATIVE) Influenza Type B Antigen Negative (NEGATIVE) Glucose (Fingerstick) 132 mg/dL (70-99) Test 02/01/21 11:50 02/01/21 17:28 02/02/21 07:18 Glucose (Fingerstick) 153 mg/dL (70-99) 128 mg/dL (70-99) 94 mg/dL (70-99) Laboratory Tests Test 02/01/21 11:50 02/01/21 17:28 02/02/21 07:18 Glucose (Fingerstick) 153 mg/dL (70-99) 128 mg/dL (70-99) 94 mg/dL (70-99) Medications Active Scripts Medications Dose Route/Sig Max Daily Dose Days Date Category Cephalexin 500 Mg Tablet 1 Tab PO BID 08/07/19 Rx Furosemide 40 Mg Tablet 40 Mg PO BID 08/21/14 Reported Pradaxa (Dabigatran Etexilate Mesylate) 150 Mg Capsule 75 Mg PO BID 08/20/14 Reported Ambien (Zolpidem Tartrate) 5 Mg Tablet 1 Tab PO QHS 08/20/14 Reported Percocet 10-325 Mg Tablet (Oxycodone/Acetaminophen) 1 Each Tablet 1-2 Tab PO PRN Q4-6HRS PRN 07/03/14 Reported Iron Supplement (Ferrous Sulfate) 325 Mg Tablet 1 Tab PO BID 06/30/14 Reported Vitamin D3 (Cholecalciferol (Vitamin D3)) 5,000 Unit Tablet 10,000 Unit PO DAILY 01/09/14 Reported Gabapentin (Gabapentin) 300 Mg Capsule 300 Mg PO HS 01/09/14 Reported Vitamin A 8,000 Unit Capsule 16,000 Unit PO DAILY 01/09/14 Reported [calcium] 1,200 Mg PO DAILY 01/09/14 Reported Vitamin C (Ascorbic Acid) 1,000 Mg Tablet 1,000 Mg PO DAILY 01/09/14 Reported Glucosamine & Chondroitin Cap (Glucosa Cooney 2KCL/Chondroitin Cooney) 1 Each Capsule 2 Each PO DAILY 01/09/14 Reported Magnesium (Magnesium Oxide) 400 Mg Capsule 400 Mg PO DAILY 01/09/14 Reported Centrum Silver Tablet (Multivits-Min/Fa/Lycopene/Lut) 1 Each Tablet 1 Each PO DAILY 01/09/14 Reported Aspir 81 (Aspirin) 81 Mg Tablet. 81 Mg PO DAILY 01/09/14 Reported Metoprolol Tartrate 100 Mg Tablet 100 Mg PO BID 01/09/14 Reported B Complex (Vitamin B Complex) 1 Each Tablet 1 Each PO DAILY 06/19/13 Reported Acidophilus (Lactobacillus Acidophilus) 1 Each Capsule 1 Each PO DAILY 05/16/13 Reported Pramipexole Dihydrochloride (Pramipexole Di-Hcl) 0.25 Mg Tablet 0.25 Mg PO HS 05/16/13 Reported Oxybutynin Chloride 5 Mg Tablet 5 Mg PO HS 05/16/13 Reported Potassium Chloride 10 Meq Tablet.er 20 Meq PO DAILY 05/16/13 Reported Losartan-Hctz 100-25 Mg Tab (Losartan/Hydrochlorothiazide) 1 Each Tablet 1 Each PO DAILY 05/16/13 Reported Omeprazole 40 Mg Capsule. 40 Mg PO DAILY 05/16/13 Reported Levothyroxine Sodium 88 Mcg Tablet 88 Mcg PO DAILY 05/16/13 Reported Impression . IMPRESSION: 1. Acute hypoxemic respiratory failure secondary to COVID-19. 2. Abnormal x-ray, compatible with COVID-19, possible pulmonary edema. BNP was elevated. Troponin was not elevated. 3. History of hypertension. 4. Atrial fibrillation. 5. Suspect acute on chronic diastolic heart failure. Plan . Updated 02/02 continue current support May consider 6-minute walk in the a.m. if she continues to improve Repeat chest x-ray in the a.m. PLAN: 1. Continue current support. 2. Recommend diuresis. 3. Repeat chest x-ray in 24-48 hours. 4. Echocardiogram. DAYAN UNGER MD Feb 02, 2021 09:24
[2021-02-02 11:00] VITALS: BP 101/64
[2021-02-02] MEDS: guaiFENesin/CODEINE 100mg/10mg 5 ML LIQUID PO PRN ×2 (13:26→21:16)
[2021-02-02 15:00] VITALS: BP 122/64
[2021-02-02] MEDS: cefTRIAXone IV Push 1 GM VIAL. IVP SCH (16:16)
[2021-02-02 19:00] VITALS: BP 121/59
[2021-02-02] MEDS: PRAMIPEXOLE 0.25 MG TABLET. PO SCH (21:12)
[2021-02-02] MEDS: OXYBUTYNIN CHLORIDE 5 MG TABLET PO SCH (21:12)
[2021-02-02] MEDS: GABAPENTIN 300 MG CAPSULE. PO SCH (21:12)
[2021-02-02] MEDS: ZOLPIDEM 5 MG TABLET. PO SCH (21:13)
[2021-02-02 23:00] VITALS: BP 126/60
[2021-02-03 03:00] VITALS: BP 111/57
[2021-02-03 07:00] VITALS: BP 112/52
--- NOTE | 2021-02-03 08:20 | PDOC ---
PULMONARY PROGRESS NOTES DATE: 02/03/21 TIME: 08:20 Subjective Patient feels better, wishes to be discharged. Vitals Vital Signs Date Time Temp Pulse Resp B/P (MAP) Pulse Ox O2 Delivery O2 Flow Rate FiO2 02/03/21 08:00 Nasal Cannula 2.5 02/03/21 03:00 97.0 57 22 111/57 (75) 92 97.0 ROS: No Nausea, No Chest Pain, No Abdominal Pain, No Increase Cough General: Alert Lungs: Clear, Other (decreased air entry throughout) Cardiovascular: S1, S2 Abdomen: Soft, Non-tender Neuro Exam: Alert Extremities: No Edema Skin: Warm Labs Laboratory Tests Test 02/01/21 08:37 02/01/21 11:50 02/01/21 17:28 02/02/21 07:18 Glucose (Fingerstick) 132 mg/dL (70-99) 153 mg/dL (70-99) 128 mg/dL (70-99) 94 mg/dL (70-99) Test 02/02/21 11:07 02/02/21 16:17 02/02/21 21:50 02/03/21 07:10 Glucose (Fingerstick) 95 mg/dL (70-99) 151 mg/dL (70-99) 150 mg/dL (70-99) 98 mg/dL (70-99) Laboratory Tests Test 02/02/21 11:07 02/02/21 16:17 02/02/21 21:50 02/03/21 07:10 Glucose (Fingerstick) 95 mg/dL (70-99) 151 mg/dL (70-99) 150 mg/dL (70-99) 98 mg/dL (70-99) Medications Active Scripts Medications Dose Route/Sig Max Daily Dose Days Date Category Cephalexin 500 Mg Tablet 1 Tab PO BID 08/07/19 Rx Furosemide 40 Mg Tablet 40 Mg PO BID 08/21/14 Reported Pradaxa (Dabigatran Etexilate Mesylate) 150 Mg Capsule 75 Mg PO BID 08/20/14 Reported Ambien (Zolpidem Tartrate) 5 Mg Tablet 1 Tab PO QHS 08/20/14 Reported Percocet 10-325 Mg Tablet (Oxycodone/Acetaminophen) 1 Each Tablet 1-2 Tab PO PRN Q4-6HRS PRN 07/03/14 Reported Iron Supplement (Ferrous Sulfate) 325 Mg Tablet 1 Tab PO BID 06/30/14 Reported Vitamin D3 (Cholecalciferol (Vitamin D3)) 5,000 Unit Tablet 10,000 Unit PO DAILY 01/09/14 Reported Gabapentin (Gabapentin) 300 Mg Capsule 300 Mg PO HS 01/09/14 Reported Vitamin A 8,000 Unit Capsule 16,000 Unit PO DAILY 01/09/14 Reported [calcium] 1,200 Mg PO DAILY 01/09/14 Reported Vitamin C (Ascorbic Acid) 1,000 Mg Tablet 1,000 Mg PO DAILY 01/09/14 Reported Glucosamine & Chondroitin Cap (Glucosa Cooney 2KCL/Chondroitin Cooney) 1 Each Capsule 2 Each PO DAILY 01/09/14 Reported Magnesium (Magnesium Oxide) 400 Mg Capsule 400 Mg PO DAILY 01/09/14 Reported Centrum Silver Tablet (Multivits-Min/Fa/Lycopene/Lut) 1 Each Tablet 1 Each PO DAILY 01/09/14 Reported Aspir 81 (Aspirin) 81 Mg Tablet. 81 Mg PO DAILY 01/09/14 Reported Metoprolol Tartrate 100 Mg Tablet 100 Mg PO BID 01/09/14 Reported B Complex (Vitamin B Complex) 1 Each Tablet 1 Each PO DAILY 06/19/13 Reported Acidophilus (Lactobacillus Acidophilus) 1 Each Capsule 1 Each PO DAILY 05/16/13 Reported Pramipexole Dihydrochloride (Pramipexole Di-Hcl) 0.25 Mg Tablet 0.25 Mg PO HS 05/16/13 Reported Oxybutynin Chloride 5 Mg Tablet 5 Mg PO HS 05/16/13 Reported Potassium Chloride 10 Meq Tablet.er 20 Meq PO DAILY 05/16/13 Reported Losartan-Hctz 100-25 Mg Tab (Losartan/Hydrochlorothiazide) 1 Each Tablet 1 Each PO DAILY 05/16/13 Reported Omeprazole 40 Mg Capsule. 40 Mg PO DAILY 05/16/13 Reported Levothyroxine Sodium 88 Mcg Tablet 88 Mcg PO DAILY 05/16/13 Reported Impression . IMPRESSION: 1. Acute hypoxemic respiratory failure secondary to COVID-19. 2. Abnormal x-ray, compatible with COVID-19, possible pulmonary edema. BNP was elevated. Troponin was not elevated. 3. History of hypertension. 4. Atrial fibrillation. 5. Suspect acute on chronic diastolic heart failure. Plan . Updated 02/03 6-minute walk Follow-up with me in February Discussed with RN Outpatient echocardiogram Chest x-ray reviewed, no change updated 02/02 continue current support May consider 6-minute walk in the a.m. if she continues to improve Repeat chest x-ray in the a.m. DAYAN UNGER MD Feb 03, 2021 08:20
--- NOTE | 2021-02-03 08:25 | RAD ---
EXAM: Chest, single view. HISTORY: Congestive heart failure. COMPARISON: 01/31/2021 FINDINGS: A frontal view of the chest is obtained. There is stable diffuse interstitial and alveolar infiltrate. There is no pleural effusion or pneumothorax. There is stable prominent cardiac silhouett e. IMPRESSION: Stable diffuse infiltrate and prominent cardiac silhouette. Electronically signed by: Cee Kelly MD (02/03/2021 8:23 AM) [id number]
[2021-02-03] MEDS: LOSARTAN POTASSIUM 50 MG TABLET. PO SCH (09:00)
[2021-02-03] MEDS: METOPROLOL TART IMMED RELEASE 50 MG TABLET. PO SCH (09:00)
[2021-02-03] MEDS: hydroCHLOROthiazide 25 MG TABLET PO SCH (09:00)
[2021-02-03] MEDS: AZITHROMYCIN 250 MG TABLET. PO SCH (09:12)
[2021-02-03] MEDS: DABIGATRAN ETEXILATE 75 MG CAPSULE. PO SCH (09:12)
[2021-02-03] MEDS: LACTOBACILLUS RHAMNOSUS GG 1 CAPSULE. PO SCH (09:12)
[2021-02-03] MEDS: ASCORBIC ACID 1,000 MG TABLET PO SCH (09:12)
[2021-02-03] MEDS: LEVOTHYROXINE 88 MCG TABLET PO SCH (09:13)
[2021-02-03] MEDS: MAGNESIUM OXIDE 400 MG TABLET PO SCH (09:13)
[2021-02-03] MEDS: PANTOPRAZOLE 40 MG TABLET.DR. PO SCH (09:14)
[2021-02-03] MEDS: MULTIVITAMIN with MINERAL TABLET. PO SCH (09:14)
[2021-02-03] MEDS: VITAMIN B COMPLEX TABLET. PO SCH (09:14)
[2021-02-03] MEDS: SENNOSIDES/DOCUSATE 8.6/50MG TABLET. PO SCH (09:15)
[2021-02-03] MEDS: DEXAMETHASONE 4 MG TABLET PO SCH (09:15)
[2021-02-03] MEDS: FUROSEMIDE 40 MG TABLET. PO SCH ×2 (09:15→15:30)
[2021-02-03] MEDS: ASPIRIN ENTERIC COATED 81 MG TABLET.DR. PO SCH (09:16)
[2021-02-03] MEDS: CHOLECALCIFEROL (VITAMIN D3) 5,000 UNIT CAPSULE PO SCH (09:16)
[2021-02-03 11:00] VITALS: BP 145/69
[2021-02-03] MEDS ORDERED: ANTI-COAG MONITOR BY PHARMACY. MC PRN (12:30)
--- NOTE | 2021-02-03 12:37 | PDOC ---
[facility] PROGRESS NOTE Date of Service DOS: DATE: 02/03/21 TIME: 12:27 Chief Complaint Chief Complaint Acute hypoxic respiratory failure secondary to pneumonia due to COVID-19, history of A. fib hypertension -Patient with episode with 1 to 2-week history worsening shortness of breath. Says she was Covid positive about a week ago and has been quarantining -Symptoms worsened over the past 24 hours with productive cough and feeling of unable to catch her breath -In emergency room imaging consistent with Covid -Starting broad-spectrum antibiotics. 6 mg Decadron daily. We will hold off on remdesivir as she is pretty far out from her positive status. -As needed breathing treatments -She is on home Pradaxa which will also serve as DVT prophylaxis -Cardiac diet -Wean O2 as tolerated -Home meds resumed as indicated History of Present Illness History of Present Illness 02/03/2021 Patient was seen and examined, in NAD. Patient is on 2L oxygen per NC. Chart Reviewed and dicussed with RN. Possible discharge tomorrow am pending disposition. 02/02/2021 Patient seen and examined She is up on the edge of bed coughing Discussed with RN Chart reviewed Patient is a pretty poor historian thus HPI from emergency room below Patient is an 85-year-old female who presents to the emergency department today for shortness of breath, nonproductive cough, fever. Patient is Covid positive from what she thinks is 1 week ago and has worsening of her symptoms over the last day. Patient is on day 10 of her quarantine? She does not wear home oxygen. She was hypoxic upon ER arrival at 88 to 89% on room air. Patient has a history of A. fib and hypertension. She denies chest pain, nausea, vomiting. Patient denies any history of CHF or COPD. She states that she has bilateral lower extremity edema but this is her baseline edema. When I evaluated the patient in the emergency room she was still requiring supplemental oxygen. She had received broad-spectrum antibiotics and Decadron. Respirations were still pretty labored. Imaging consistent with ongoing Covid pneumonia. 02/01 Patient evaluated and examined at bedside. She is definitely more alert today able to provide some supplemental history. Says she was initially Covid positive on 23 January. She has been quarantining ever since. She is on 2 L nasal cannula saturating in the 90s. No apparent respiratory distress. Continue COVID treatments. Pulmonary consulted. Plan of care discussed bedside RN. Vitals/I&O Vitals/I&O: Vital Signs Date Time Temp Pulse Resp B/P (MAP) Pulse Ox O2 Delivery O2 Flow Rate FiO2 02/03/21 09:00 62 112/52 02/03/21 08:00 Nasal Cannula 2.5 02/03/21 07:00 96.3 16 98 96.3 I & O 02/02/21 02/02/21 02/03/21 15:00 23:00 07:00 Output Total 0 ml Balance 0 ml Physical Exam General: Alert, Oriented X3, Cooperative Heart: Regular rate, Normal S1, Normal S2 Lungs: Clear, Other (decreased air entry throughout) Abdomen: Normal bowel sounds, Soft, No tenderness Extremities: Normal pulses Skin: No significant lesion Labs Labs: Laboratory Tests Test 02/02/21 16:17 02/02/21 21:50 02/03/21 07:10 02/03/21 11:03 Glucose (Fingerstick) 151 mg/dL (70-99) 150 mg/dL (70-99) 98 mg/dL (70-99) 88 mg/dL (70-99) Assessment and Plan Assessmemt and Plan Problems Medical Problems: (1) Hypoxia Status: Acute (2) Pneumonia due to COVID-19 virus Status: Acute PLAN: Continue Covid Protocol -Continue Codeine Cough Syrup, Continue ASA, Continue supp oxygen. continue Multivitamins -Start Zosyn, Start Albuterol MDI Trend Labs Continue DVT prophylaxis Pulmonary following. Continue home meds Possible discharge tomorrow (02/04) morning pending disposition. Comment Review of Relevant I have reviewed the following items peggy (where applicable) has been applied. Medications: Current Medications Medications (Trade) Dose Ordered Sig/Flora Route PRN Reason Start Time Stop Time Status Last Admin Dose Admin Info (Anti-Coagulation Monitoring By Pharmacy) 1 each PRN DAILY PRN MC PER PROTOCOL 02/03/21 12:30 02/03/21 12:20 Justifications for Admission Other Justification SEN TOMAS III DO Feb 03, 2021 12:37
[2021-02-03] MEDS: guaiFENesin/CODEINE 100mg/10mg 5 ML LIQUID PO PRN (13:17)
[2021-02-03] MEDS ORDERED: OXYC5TAB4 PO (13:19)
[2021-02-03] MEDS ORDERED: GUAI120L35 PO (13:19)
[2021-02-03] MEDS ORDERED: AZIT250T6 PO (13:19)
[2021-02-03] MEDS ORDERED: METH4TAB2 PO (13:19)
--- NOTE | 2021-02-03 13:24 | SNU/HH DC ---
DISCHARGE WITH HOME HEALTH DISCHARGE INFORMATION: Final Diagnosis: Problems Medical Problems: (1) Hypoxia Status: Acute (2) Pneumonia due to COVID-19 virus Status: Acute Condition on Discharge: Stable CODE STATUS: Code Status: Full HOME HEALTH: Face to Face: I certify this patient is under my care and that I, or a nurse practitioner or physician's records assistant working with me, had a face to face encounter that meets the physician face to face encounter requirements with this patient on []. 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 POST DISCHARGE ORDERS: Activity Instructions for Disc: Activity as tolerated Weight Bearing Status after Di: No restrictions Bathing Instructions: Shower-keep dressing dry DIET AFTER DISCHARGE: Cardiac Wound/Incision Care: Ice to area for comfort, Keep wound/cast CDI, Keep wound elevated TREATMENT/EQUIPMENT ORDERS: Adaptive Equipment Issued: None CERTIFICATION STATEMENT: Certification Statement: Certification Statement: Based on the above finding, I certify that this patient is confined to the home and needs intermittent jail care, physical therapy and/or speech therapy, or continues to need occupational therapy.~ This patient is under my care, and I have initiated the establishment of the plan of care.~ This patient will be followed by myself or a community physician who will periodically review the plan of care. Home Meds Active Scripts Methylprednisolone (MEDROL) 4 Mg Tab.ds.pk, 1 PKG PO UD for ., #1 PKG Prov:CASTLE,NIAL K III DO 02/03/21 Guaifenesin/Codeine Phosphate (Codeine-Guaifen 10-100 mg/5 ml) 120 Ml Liquid, 5 ML PO PRN Q6HRS PRN for COUGH for 7 Days, #100 LIQUID Prov:CASTLE,NIAL K III DO 02/03/21 Oxycodone Hcl (OXYCODONE HCL IMMED.RELEASE ) 5 Mg Tablet, 5 MG PO PRN Q3HRS PRN for BREAKTHROUGH PAIN for 7 Days, #14 TAB Prov:CASTLE,NIAL K III DO 02/03/21 Azithromycin (AZITHROMYCIN TABLET) 250 Mg Tablet, 250 MG PO DAILY for . for 7 Days, #7 TAB Prov:CASTNATASHA,NIAL K III DO 02/03/21 Cephalexin (CEPHALEXIN) 500 Mg Tablet, 1 TAB PO BID, #14 TAB Prov:DEACON GOODWIN REAL ESTATE OPERATIONS MANAGER 08/07/19 Reported Medications Furosemide (FUROSEMIDE) 40 Mg Tablet, 40 MG PO BID, TAB 08/21/14 Dabigatran Etexilate Mesylate (PRADAXA) 150 Mg Capsule, 75 MG PO BID 08/20/14 Zolpidem Tartrate (AMBIEN) 5 Mg Tablet, 1 TAB PO QHS, #30 TAB 2 Refills 08/20/14 Oxycodone/Apap 10-325 (PERCOCET 10-325 MG TABLET ) 1 Each Tablet, 1-2 TAB PO PRN Q4-6HRS PRN for PAIN, #40 TAB 07/03/14 Ferrous Sulfate (IRON SUPPLEMENT) 325 Mg Tablet, 1 TAB PO BID, #60 TAB 3 Refills 06/30/14 Cholecalciferol (Vitamin D3) (VITAMIN D3) 5,000 Unit Tablet, 44323 UNIT PO DAILY 01/09/14 Gabapentin (GABAPENTIN ) 300 Mg Capsule, 300 MG PO HS, CAP 01/09/14 Vitamin A (VITAMIN A) 8,000 Unit Capsule, 97752 UNIT PO DAILY 01/09/14 [calcium] No Conflict Check, 1200 MG PO DAILY 01/09/14 Ascorbic Acid (VITAMIN C) 1,000 Mg Tablet, 1000 MG PO DAILY 01/09/14 Glucosa Cooney 2KCL/Chondroitin Cooney (GLUCOSAMINE & CHONDROITIN CAP) 1 Each Capsule, 2 EACH PO DAILY 01/09/14 Magnesium Oxide (MAGNESIUM) 400 Mg Capsule, 400 MG PO DAILY 01/09/14 Multivits-Min/Fa/Lycopene/Lut (CENTRUM SILVER TABLET) 1 Each Tablet, 1 EACH PO DAILY 01/09/14 Aspirin (ASPIR 81) 81 Mg Tablet.dr, 81 MG PO DAILY, TAB 01/09/14 Metoprolol Tartrate (METOPROLOL TARTRATE) 100 Mg Tablet, 100 MG PO BID for FOR HYPERTENSION, #60 TAB 0 Refills 01/09/14 Vitamin B Complex (B COMPLEX) 1 Each Tablet, 1 EACH PO DAILY 06/19/13 Lactobacillus Acidophilus (ACIDOPHILUS) 1 Each Capsule, 1 EACH PO DAILY 05/16/13 Pramipexole Di-Hcl (PRAMIPEXOLE DIHYDROCHLORIDE) 0.25 Mg Tablet, 0.25 MG PO HS 05/16/13 Oxybutynin Chloride (OXYBUTYNIN CHLORIDE) 5 Mg Tablet, 5 MG PO HS 05/16/13 Potassium Chloride (POTASSIUM CHLORIDE) 10 Meq Tablet.er, 20 MEQ PO DAILY 05/16/13 Losartan/Hydrochlorothiazide (LOSARTAN-HCTZ 100-25 MG TAB) 1 Each Tablet, 1 EACH PO DAILY 05/16/13 Omeprazole (OMEPRAZOLE) 40 Mg Capsule.dr, 40 MG PO DAILY 05/16/13 Levothyroxine Sodium (LEVOTHYROXINE SODIUM) 88 Mcg Tablet, 88 MCG PO DAILY 05/16/13 SEN TOMAS III DO Feb 03, 2021 13:24
[2021-02-03] MEDS: cefTRIAXone IV Push 1 GM VIAL. IVP SCH (15:30)
--- NOTE | 2021-02-03 16:45 | NUR ---
Discharge Note: MATILDE BERMUDEZ [facility] Discharge instructions and discharge home medications reviewed with Patient and a copy given. All questions have been answered and understanding verbalized. The following instructions and handouts were given: information about oxygen usage and how to operate, medications, follow up appointments, diet, activity. Discontinued lines and drains: no IV line present. Patient discharged to Home with Home Health with son, wheelchair used for mobility to discharge vehicle.
--- NOTE | 2021-02-03 18:07 | DS ---
DATE OF DISCHARGE: 02/03/2021 ADMITTING DIAGNOSIS: COVID-19 respiratory failure. DISCHARGE DIAGNOSES: Resolving COVID-19 respiratory failure, overweight, history of chronic anticoagulation, on Pradaxa, edema, neuropathy, hypothyroidism, hypertension, chronic pain, GERD. CONSULTS: Pulmonary Medicine. PROCEDURES: None. HOSPITAL COURSE: The patient is a pleasant elderly female who presented with respiratory failure secondary to COVID-19. She was admitted. We gave her remdesivir, steroids, antibiotics, vitamins, minerals, beta agonist, oxygen, codeine cough syrup, aspirin, and Lovenox. We continued her home medicines. Over the past few days, she has returned to baseline. Today, I saw and examined her. She is doing well. We plan to discharge on home oxygen. DISPOSITION: Home. ACTIVITY: As tolerated. DIET: Low sodium. DISCHARGE MEDICATIONS: Please see the MRAD. OTHER MEDICATIONS: Home O2 at 2 liters., azithromycin 250 a day for 1 more week, p.r.n. Robitussin with codeine cough syrup, steroid taper with Medrol Dosepak, oxycodone 5 mg q.3 hours p.r.n., vitamin C, aspirin 81 a day, vitamin D, Pradaxa 75 b.i.d., iron 325 a day, Lasix 40 a day, gabapentin 300 a day, glucosamine, lactobacillus tablets, Synthroid 88 a day, losartan/hydrochlorothiazide 100/25 one a day, magnesium oxide 400 a day, metoprolol 100 a day, multiple vitamins, Prilosec 40 a day, oxybutynin 5 a day, p.r.n. Percocet 10 mg q.6 hours p.r.n., potassium 20 a day, pramipexole 0.25 a day, vitamin A, vitamin B, and Ambien 5 at bedtime. TOTAL TIME: [address]: Jim TID: [id number]
== END 2021-02-03 16:45 | disposition home health service (06) | DRG 177 ==
LOC: ER 12:39 → ED HOLD 14:52 → 5 SOUTH 18:25
PROVIDERS: ADMIT Student in an Organized Health Care Education/Training Program; ATTEND Student in an Organized Health Care Education/Training Program
DX: U07.1 COVID-19 (principal); J12.82 Pneumonia due to coronavirus disease 2019; J96.01 Acute respiratory failure with hypoxia; Z68.42 Body mass index [BMI] 45.0-49.9, adult; D72.810 Lymphocytopenia; E03.9 Hypothyroidism, unspecified; I10 Essential (primary) hypertension; I48.91 Unspecified atrial fibrillation; Z79.01 Long term (current) use of anticoagulants; Z82.49 Family history of ischemic heart disease and other diseases of the circulatory system; E66.9 Obesity, unspecified; G89.29 Other chronic pain; K21.9 Gastro-esophageal reflux disease without esophagitis
CPT/HCPCS: 36415; 71045; 80053; 82962; 83880; 84484; 85025; 87804; 93005; 94618; 96365; 96375; J0456; J0696; J1100; 99285-25; G0378